=== PATIENT | female | born 1935 | race Caucasian/White ===

== ENCOUNTER 2020-05-25 11:16 | Inpatient (IN) | payer MEDICARE, OTHER, SELFPAY ==
[2020-05-25] VITALS (10 sets, daily range): BP systolic 110–141; BP diastolic 80–95; PULSE 64–94; RESP 16–18; TEMP 36.6; O2SAT 98–100; BMI 18.6
--- NOTE | 2020-05-25 11:38 | W.ED.GENADLT ---
Documented by User: YVONNE Bar 05/26/20 07:28 HPI - General Adult General: Chief complaint: General Medical Stated complaint: R HIP PAIN Time Seen by Provider: 05/25/20 11:17 History of Present Illness: HPI narrative: Patient is an 84-year-old female who comes to the ED after having a fall. Patient was brought in by EMS from [facility]. Patient has dementia. EMS was told by staff that patient had a fall on 17 May and has some hip pain. Staff did not specify if she was complaining of right or left hip pain. EMS palpated hips and patient had no pain and patient was unsure why she was coming here to the ED. Patient says she has no hip pain currently. Patient is a poor historian due to underlying dementia. Associated symptoms: Deny chest pain, dyspnea, headache(s), nausea, rash, palpitations or vomiting Review of Systems Narrative: [facility] at jail. Const: Denies: fever(s), chills or fatigue Eyes: Denies: change in vision or eye discomfort ENMT: Denies: throat pain, odynophagia, nasal discharge or nasal congestion Card: Denies: chest pain, palpitations, edema, swelling of feet/ankles, dyspnea on exertion or orthopnea Resp: Denies: dyspnea, productive cough or non-productive cough GI: Denies: abdominal pain, nausea, vomiting, diarrhea, constipation or hematochezia : Denies: flank pain, dysuria or hematuria Musc: Reports: joint pain (Staff at jail said patient was complaining of hip pain after fall.); Denies: neck pain, back pain or extremity swelling Skin/Breast: Denies: rash or new lesions Neuro: Denies: headache(s), numbness in extremities or weakness in extremities PFS ED PFSH: Medical History Constipation Dementia Fracture of femoral neck, right Malnourished UTI (urinary tract infection) Enterococcus faecalis Surgical History H/O inguinal hernia repair Tubal ligation status Family History Other Family history non-contributory Social History Smoking and tobacco status: never smoked Alcohol intake: never Housing: Long-Term Physical Exam Const: COMMON NORMALS: no acute distress and alert EXAM LIMITATIONS: altered mental status (Pt has Dementia, so baseline mental status is unknown.) GENERAL APPEARANCE: cooperative and comfortable HENMT: COMMON NORMALS: normocephalic HEAD & SCALP: normocephalic MOUTH: Normal oral and palatal mucosa present THROAT: posterior oropharynx normal and uvula midline Neck/C-Spine: COMMON NORMALS: supple GENERAL: Yes normal visual inspection Resp: COMMON NORMALS: normal respiratory effort, No retractions, No use of accessory muscles and clear to auscultation bilaterally AUSCULTATION: clear to auscultation bilaterally Cardio: COMMON NORMALS: regular rate, regular rhythm, S1 normal heart sound present, S2 normal heart sound present, No gallops present (Cardio), No clicks present (Cardio), No murmurs present (Cardio) and Peripheral pulses 2+ throughout RATE: regular rate RHYTHM: regular rhythm HEART SOUNDS: S1 normal heart sound present and S2 normal heart sound present PERIPHERAL PULSES: Peripheral pulses 2+ throughout GI: COMMON NORMALS: Normal to inspection, nondistended, normoactive bowel sounds present, Soft to palpation, non-tender and no masses PALPATION: Yes Soft to palpation : COMMON NORMALS: Yes no CVA tenderness BLADDER/KIDNEY EXAM: Yes no CVA tenderness Back/Pelvis: COMMON NORMALS: no CVA tenderness Extremity: COMMON NORMALS: normal to inspection Neuro: COMMON NORMALS: moves all extremities SENSORIUM/ORIENTATION: Yes alert Skin: GENERAL SKIN EXAM: dry skin Course ED course: While patient was waiting for transport we received a call from patient's doctor about some abnormal labs. Said that some labs were performed couple days ago the results just came back. Patient has a potassium of 2.5. We then ordered a bunch of labs and other tests on patient to further evaluate. Vital Signs: Vital signs: Vital Signs Temperature 98.3 F 05/27/20 00:00 Pulse Rate 73 05/27/20 00:00 Respiratory Rate 18 05/27/20 00:00 Blood Pressure 100/54 05/27/20 00:00 Pulse Oximetry 97 05/27/20 00:00 MDM - General Adult MDM Narrative: Medical decision making narrative: Patient is an 84-year-old female comes to the ED after having a fall at jail. PMH of dementia. Patient is a poor historian due to underlying dementia fall occurred approximately 8 days ago. Staff told EMS that patient was complaining of hip pain. Exam showed no significant findings. X-ray of the right and left hip showed no acute fractures or findings. CT of head was performed, since patient had a fall and no other details were provided by nursing staff. CT of head showed no acute findings. Patient was set up to be discharged back to jail. While patient was waiting for transport the ED received a call from patient's doctor. The doctor had some lab results back from testing that was done a couple days ago and the potassium level was 2.5. After calling from [facility] we then kept patient here and ordered a full set of labs, EKG and some imaging. Patient had a potassium of 2.3, D-dimer of 2.95, white blood cell count 26.8 BNP of 3140 and a lipase of 400. CT of abdomen was performed and patient had acute pancreatitis. Patient was admitted to hospital for further evaluation. Lab Data: Labs: Lab Results 05/25/20 05/25/20 05/25/20 Range/Units 17:24 17:24 17:24 WBC 27.9 H (4.0-10.0) 10^3/ uL RBC 5.63 H (4.1-5.3) 10^6/u L Hgb 16.2 H (11.5-15.3) g/dL Hct 49.3 H (37.0-47.0) % MCV 87.6 (81-99) fL MCH 28.8 (28.0-34.0) pg MCHC 32.9 (30.0-36.0) g/dL RDW 13.6 (12.1-15.1) % Plt Count 344 (130-400) 10^3/c mm MPV 11.1 H (7.4-10.4) fL Neut % (Auto) 84.3 % Lymph % (Auto) 5.7 % [place] % (Auto) 7.4 % Eos % (Auto) 0.3 % Baso % (Auto) 0.4 % Neut # (Auto) 23.50 H (1.8-7.7) 10^3/u L Lymph # (Auto) 1.6 (0.8-4.8) 10^3/u L [place] # (Auto) 2.1 H (0.2-0.9) 10^3/u L Eos # (Auto) 0.1 (0.0-0.8) 10^3/u L Baso # (Auto) 0.1 (0.0-0.1) 10^3/u L Nucleated RBC % (a uto) 0 % Nucleated RBCs # 0.0 /100WBC D-Dimer (0-0.59) ug/mIFE U Sodium 147 H (136-145) mmol/L Potassium 2.3 L* (3.5-5.1) mmol/L Chloride 100 (98-107) mmol/L Carbon Dioxide 37 H (22-29) mmol/L Anion Gap 12.3 (5-19) BUN 26 H (8-23) mg/dL Creatinine 0.8 (0.5-0.9) mg/dL GFR Calculation Not Reportable Glucose 141 H (65-115) mg/dL Calculated Osmolal ity 311 H (285-295) mOsm/k g Lactic Acid 2.0 (0.5-2.2) mmol/L Calcium 10.8 H (8.5-10.5) mg/dL Total Bilirubin 1.2 (0.15-1.2) mg/dL AST 35 H (0-32) U/L ALT 33 (0-33) U/L Alkaline Phosphata se 110 H (35-105) IU/L Troponin T Baselin e (0-10) ng/L Troponin T 120 Min [place] (0-10) ng/L Delta Troponin T (0-10) ABS# NT-Pro-B Natriuret Pep 3140 H (0-450) pg/mL Total Protein 5.5 L (6.6-8.7) g/dL Albumin 2.8 L (3.5-5.2) g/dL Globulin 2.7 (1.3-4.6) g/dL Lipase (13-60) U/L Urine Color (Yellow) Urine Appearance (CLEAR) Urine pH (5-7) Ur Specific Gravit y (1.005-1.030) Urine Protein (Negative) Urine Glucose (UA) (Normal) Urine Ketones (Negative) Urine Blood (Negative) Urine Nitrate (Negative) Urine Bilirubin (Negative) Urine Urobilinogen (Negative) mg/dL Ur Leukocyte Rica ase (Negative) Urine RBC (0-2) /hpf Urine WBC (0-5) /hpf Ur Squamous Epith Cells (0-5) /hpf Amorphous Sediment Urine Bacteria (NONE) /hpf 05/25/20 05/25/20 05/25/20 Range/Units 17:24 17:24 17:24 WBC (4.0-10.0) 10^3/ uL RBC (4.1-5.3) 10^6/u L Hgb (11.5-15.3) g/dL Hct (37.0-47.0) % MCV (81-99) fL MCH (28.0-34.0) pg MCHC (30.0-36.0) g/dL RDW (12.1-15.1) % Plt Count (130-400) 10^3/c mm MPV (7.4-10.4) fL Neut % (Auto) % Lymph % (Auto) % [place] % (Auto) % Eos % (Auto) % Baso % (Auto) % Neut # (Auto) (1.8-7.7) 10^3/u L Lymph # (Auto) (0.8-4.8) 10^3/u L [place] # (Auto) (0.2-0.9) 10^3/u L Eos # (Auto) (0.0-0.8) 10^3/u L Baso # (Auto) (0.0-0.1) 10^3/u L Nucleated RBC % (a uto) % Nucleated RBCs # /100WBC D-Dimer 2.95 H (0-0.59) ug/mIFE U Sodium (136-145) mmol/L Potassium (3.5-5.1) mmol/L Chloride (98-107) mmol/L Carbon Dioxide (22-29) mmol/L Anion Gap (5-19) BUN (8-23) mg/dL Creatinine (0.5-0.9) mg/dL GFR Calculation Glucose (65-115) mg/dL Calculated Osmolal ity (285-295) mOsm/k g Lactic Acid (0.5-2.2) mmol/L Calcium (8.5-10.5) mg/dL Total Bilirubin (0.15-1.2) mg/dL AST (0-32) U/L ALT (0-33) U/L Alkaline Phosphata se (35-105) IU/L Troponin T Baselin e 70 H (0-10) ng/L Troponin T 120 Min [place] (0-10) ng/L Delta Troponin T (0-10) ABS# NT-Pro-B Natriuret Pep (0-450) pg/mL Total Protein (6.6-8.7) g/dL Albumin (3.5-5.2) g/dL Globulin (1.3-4.6) g/dL Lipase 400 H (13-60) U/L Urine Color (Yellow) Urine Appearance (CLEAR) Urine pH (5-7) Ur Specific Gravit y (1.005-1.030) Urine Protein (Negative) Urine Glucose (UA) (Normal) Urine Ketones (Negative) Urine Blood (Negative) Urine Nitrate (Negative) Urine Bilirubin (Negative) Urine Urobilinogen (Negative) mg/dL Ur Leukocyte Rica ase (Negative) Urine RBC (0-2) /hpf Urine WBC (0-5) /hpf Ur Squamous Epith Cells (0-5) /hpf Amorphous Sediment Urine Bacteria (NONE) /hpf 05/25/20 05/25/20 Range/Units 19:16 19:25 WBC (4.0-10.0) 10^3/ uL RBC (4.1-5.3) 10^6/u L Hgb (11.5-15.3) g/dL Hct (37.0-47.0) % MCV (81-99) fL MCH (28.0-34.0) pg MCHC (30.0-36.0) g/dL RDW (12.1-15.1) % Plt Count (130-400) 10^3/c mm MPV (7.4-10.4) fL Neut % (Auto) % Lymph % (Auto) % [place] % (Auto) % Eos % (Auto) % Baso % (Auto) % Neut # (Auto) (1.8-7.7) 10^3/u L Lymph # (Auto) (0.8-4.8) 10^3/u L [place] # (Auto) (0.2-0.9) 10^3/u L Eos # (Auto) (0.0-0.8) 10^3/u L Baso # (Auto) (0.0-0.1) 10^3/u L Nucleated RBC % (a uto) % Nucleated RBCs # /100WBC D-Dimer (0-0.59) ug/mIFE U Sodium (136-145) mmol/L Potassium (3.5-5.1) mmol/L Chloride (98-107) mmol/L Carbon Dioxide (22-29) mmol/L Anion Gap (5-19) BUN (8-23) mg/dL Creatinine (0.5-0.9) mg/dL GFR Calculation Glucose (65-115) mg/dL Calculated Osmolal ity (285-295) mOsm/k g Lactic Acid (0.5-2.2) mmol/L Calcium (8.5-10.5) mg/dL Total Bilirubin (0.15-1.2) mg/dL AST (0-32) U/L ALT (0-33) U/L Alkaline Phosphata se (35-105) IU/L Troponin T Baselin e (0-10) ng/L Troponin T 120 Min [place] 61.01 H (0-10) ng/L Delta Troponin T -8.99 L (0-10) ABS# NT-Pro-B Natriuret Pep (0-450) pg/mL Total Protein (6.6-8.7) g/dL Albumin (3.5-5.2) g/dL Globulin (1.3-4.6) g/dL Lipase (13-60) U/L Urine Color Yellow (Yellow) Urine Appearance Hazy A (CLEAR) Urine pH 5 (5-7) Ur Specific Gravit y 1.015 (1.005-1.030) Urine Protein Trace (Negative) Urine Glucose (UA) Norm (Normal) Urine Ketones 1+ H (Negative) Urine Blood 3+ H (Negative) Urine Nitrate Negative (Negative) Urine Bilirubin Neg (Negative) Urine Urobilinogen Norm (Negative) mg/dL Ur Leukocyte Rica ase 2+ H (Negative) Urine RBC 80-100 H (0-2) /hpf Urine WBC 55-80 H (0-5) /hpf Ur Squamous Epith Cells 0-4 H (0-5) /hpf Amorphous Sediment Not Reportable Urine Bacteria 2+ H (NONE) /hpf Imaging Data^: Xray Ortho: Attestation: I personally reviewed and interpreted this imaging study as follows: Radiologist's impression: [facility] [address] [place] [address]. [place] [address] XRay Report Signed Patient: Maira Palacio Unit #: [id number] : 1935 Age/Sex: 84 / F ADM Date: 05/25/20 Loc: ER Room/Bed: Attending Dr: Ordering Provider/Ordering MD: Pio Rebolledo Date of Service: 05/25/20 Procedure(s): XR hip BI 2V wo/w pel [id number] Accession Number(s): [id number] Report Number: [id number] WS: [id number] XR hip BI 2V wo/w pel [id number] REASON FOR EXAM: fall FINDINGS: Significant narrowing of the hip joint with marginal osteophytes from femoral head and acetabulum. Femoral head and neck are intact. Greater lesser trochanters are intact. Proximal femur inferior to the trochanters intact. The superior and inferior pubic rami are intact. Incidental note: Probable uterine fibroid. Severe degenerative spondylosis in the lower lumbar spine. XR/XR hip BI 2V wo/w pel [id number] IMPRESSION: Osteoarthropathy. No fracture identified. Dictated By: Moses Villatoro Jr, MD Signed By: Moses Villatoro Jr, MD Signed Date/Time: 05/25/20 1218 DD/ 1214 CT Head: Attestation: I personally reviewed and interpreted this imaging study as follows: Radiologist's impression: [facility] [address] [place] [address]. [place] [address] CT Scan Report Signed Patient: Maira Palacio Unit #: [id number] : 1935 Age/Sex: 84 / F ADM Date: 05/25/20 Loc: ER Room/Bed: Attending Dr: Ordering Provider/Ordering MD: Pio Rebolledo Date of Service: 05/25/20 Procedure(s): CT head wo con* [id number] Accession Number(s): [id number] Report Number: [id number] WS: [id number] CT HEAD NONCONTRAST HISTORY: fall TECHNIQUE: Contiguous axial imaging performed through the brain in 2.5 mm imaging. Bone and soft tissue windows. Sagittal and coronal reformats reviewed. All CT scans at [facility] use at least one of these dose optimization techniques: automated exposure control; mA and/or kV adjustment per patient size (includes targeted exams where dose is matched to clinical indication); or iterative reconstruction. DLP: 659.85 mGy.cm COMPARISON: 07/23/2017 No acute intracranial hemorrhage, midline shift or mass effect. Moderate atrophy and mild chronic microvascular ischemic disease. Bilateral lacunar infarcts versus perivascular spaces along the inferior basal ganglia. No large territory infarct. Ventricles: Normal size with no hydrocephalus. Paranasal sinuses: Mucoperiosteal thickening in the sphenoid sinuses in the posterior RIGHT ethmoid air cells. Mastoid air cells: Well pneumatized. Calvarium and scalp: Skull is intact with no soft tissue edema or swelling. Extensive atherosclerotic plaque within the intracranial carotid arteries. CT/CT head wo con* [id number] IMPRESSION: 1. No acute intracranial hemorrhage or edema. 2. Moderate atrophy and chronic ischemic disease. Dictated By: Pat Matamoros DO Signed By: Pat Matamoros DO Signed Date/Time: 05/25/20 1239 DD/ 1237 Discharge Plan Discharge Admit Provider: Socorro Bo Clinical Impression: Fall Qualifiers: Encounter type: initial encounter Qualified Code(s): W19.XXXA - Unspecified fall, initial encounter Condition: Stable Discharge Diet: Regular Discharge Activity: Increase activity as tolerated Coding Level of Care Code ED Scholarship Counselor for Chg Fwd Exam Comprehensive Documented by User: SUE Duran 05/26/20 02:26 HPI - General Adult General: Chief complaint: General Medical Stated complaint: R HIP PAIN Time Seen by Provider: 05/25/20 11:17 [facility] ED PFSH: Medical History Constipation Dementia Fracture of femoral neck, right Malnourished UTI (urinary tract infection) Enterococcus faecalis Surgical History H/O inguinal hernia repair Tubal ligation status Family History Other Family history non-contributory Social History Smoking and tobacco status: never smoked Alcohol intake: never Housing: Long-Term Course Vital Signs: Vital signs: Vital Signs Temperature 98.3 F 05/27/20 00:00 Pulse Rate 73 05/27/20 00:00 Respiratory Rate 18 05/27/20 00:00 Blood Pressure 100/54 05/27/20 00:00 Pulse Oximetry 97 05/27/20 00:00 [facility] - General Adult Lab Data: Labs: Lab Results 05/25/20 05/25/20 05/25/20 Range/Units 17:24 17:24 17:24 WBC 27.9 H (4.0-10.0) 10^3/ uL RBC 5.63 H (4.1-5.3) 10^6/u L Hgb 16.2 H (11.5-15.3) g/dL Hct 49.3 H (37.0-47.0) % MCV 87.6 (81-99) fL MCH 28.8 (28.0-34.0) pg MCHC 32.9 (30.0-36.0) g/dL RDW 13.6 (12.1-15.1) % Plt Count 344 (130-400) 10^3/c mm MPV 11.1 H (7.4-10.4) fL Neut % (Auto) 84.3 % Lymph % (Auto) 5.7 % [place] % (Auto) 7.4 % Eos % (Auto) 0.3 % Baso % (Auto) 0.4 % Neut # (Auto) 23.50 H (1.8-7.7) 10^3/u L Lymph # (Auto) 1.6 (0.8-4.8) 10^3/u L [place] # (Auto) 2.1 H (0.2-0.9) 10^3/u L Eos # (Auto) 0.1 (0.0-0.8) 10^3/u L Baso # (Auto) 0.1 (0.0-0.1) 10^3/u L Nucleated RBC % (a uto) 0 % Nucleated RBCs # 0.0 /100WBC D-Dimer (0-0.59) ug/mIFE U Sodium 147 H (136-145) mmol/L Potassium 2.3 L* (3.5-5.1) mmol/L Chloride 100 (98-107) mmol/L Carbon Dioxide 37 H (22-29) mmol/L Anion Gap 12.3 (5-19) BUN 26 H (8-23) mg/dL Creatinine 0.8 (0.5-0.9) mg/dL GFR Calculation Not Reportable Glucose 141 H (65-115) mg/dL Calculated Osmolal ity 311 H (285-295) mOsm/k g Lactic Acid 2.0 (0.5-2.2) mmol/L Calcium 10.8 H (8.5-10.5) mg/dL Total Bilirubin 1.2 (0.15-1.2) mg/dL AST 35 H (0-32) U/L ALT 33 (0-33) U/L Alkaline Phosphata se 110 H (35-105) IU/L Troponin T Baselin e (0-10) ng/L Troponin T 120 Min [place] (0-10) ng/L Delta Troponin T (0-10) ABS# NT-Pro-B Natriuret Pep 3140 H (0-450) pg/mL Total Protein 5.5 L (6.6-8.7) g/dL Albumin 2.8 L (3.5-5.2) g/dL Globulin 2.7 (1.3-4.6) g/dL Lipase (13-60) U/L Urine Color (Yellow) Urine Appearance (CLEAR) Urine pH (5-7) Ur Specific Gravit y (1.005-1.030) Urine Protein (Negative) Urine Glucose (UA) (Normal) Urine Ketones (Negative) Urine Blood (Negative) Urine Nitrate (Negative) Urine Bilirubin (Negative) Urine Urobilinogen (Negative) mg/dL Ur Leukocyte Rica ase (Negative) Urine RBC (0-2) /hpf Urine WBC (0-5) /hpf Ur Squamous Epith Cells (0-5) /hpf Amorphous Sediment Urine Bacteria (NONE) /hpf 05/25/20 05/25/20 05/25/20 Range/Units 17:24 17:24 17:24 WBC (4.0-10.0) 10^3/ uL RBC (4.1-5.3) 10^6/u L Hgb (11.5-15.3) g/dL Hct (37.0-47.0) % MCV (81-99) fL MCH (28.0-34.0) pg MCHC (30.0-36.0) g/dL RDW (12.1-15.1) % Plt Count (130-400) 10^3/c mm MPV (7.4-10.4) fL Neut % (Auto) % Lymph % (Auto) % [place] % (Auto) % Eos % (Auto) % Baso % (Auto) % Neut # (Auto) (1.8-7.7) 10^3/u L Lymph # (Auto) (0.8-4.8) 10^3/u L [place] # (Auto) (0.2-0.9) 10^3/u L Eos # (Auto) (0.0-0.8) 10^3/u L Baso # (Auto) (0.0-0.1) 10^3/u L Nucleated RBC % (a uto) % Nucleated RBCs # /100WBC D-Dimer 2.95 H (0-0.59) ug/mIFE U Sodium (136-145) mmol/L Potassium (3.5-5.1) mmol/L Chloride (98-107) mmol/L Carbon Dioxide (22-29) mmol/L Anion Gap (5-19) BUN (8-23) mg/dL Creatinine (0.5-0.9) mg/dL GFR Calculation Glucose (65-115) mg/dL Calculated Osmolal ity (285-295) mOsm/k g Lactic Acid (0.5-2.2) mmol/L Calcium (8.5-10.5) mg/dL Total Bilirubin (0.15-1.2) mg/dL AST (0-32) U/L ALT (0-33) U/L Alkaline Phosphata se (35-105) IU/L Troponin T Baselin e 70 H (0-10) ng/L Troponin T 120 Min [place] (0-10) ng/L Delta Troponin T (0-10) ABS# NT-Pro-B Natriuret Pep (0-450) pg/mL Total Protein (6.6-8.7) g/dL Albumin (3.5-5.2) g/dL Globulin (1.3-4.6) g/dL Lipase 400 H (13-60) U/L Urine Color (Yellow) Urine Appearance (CLEAR) Urine pH (5-7) Ur Specific Gravit y (1.005-1.030) Urine Protein (Negative) Urine Glucose (UA) (Normal) Urine Ketones (Negative) Urine Blood (Negative) Urine Nitrate (Negative) Urine Bilirubin (Negative) Urine Urobilinogen (Negative) mg/dL Ur Leukocyte Rica ase (Negative) Urine RBC (0-2) /hpf Urine WBC (0-5) /hpf Ur Squamous Epith Cells (0-5) /hpf Amorphous Sediment Urine Bacteria (NONE) /hpf 05/25/20 05/25/20 Range/Units 19:16 19:25 WBC (4.0-10.0) 10^3/ uL RBC (4.1-5.3) 10^6/u L Hgb (11.5-15.3) g/dL Hct (37.0-47.0) % MCV (81-99) fL MCH (28.0-34.0) pg MCHC (30.0-36.0) g/dL RDW (12.1-15.1) % Plt Count (130-400) 10^3/c mm MPV (7.4-10.4) fL Neut % (Auto) % Lymph % (Auto) % [place] % (Auto) % Eos % (Auto) % Baso % (Auto) % Neut # (Auto) (1.8-7.7) 10^3/u L Lymph # (Auto) (0.8-4.8) 10^3/u L [place] # (Auto) (0.2-0.9) 10^3/u L Eos # (Auto) (0.0-0.8) 10^3/u L Baso # (Auto) (0.0-0.1) 10^3/u L Nucleated RBC % (a uto) % Nucleated RBCs # /100WBC D-Dimer (0-0.59) ug/mIFE U Sodium (136-145) mmol/L Potassium (3.5-5.1) mmol/L Chloride (98-107) mmol/L Carbon Dioxide (22-29) mmol/L Anion Gap (5-19) BUN (8-23) mg/dL Creatinine (0.5-0.9) mg/dL GFR Calculation Glucose (65-115) mg/dL Calculated Osmolal ity (285-295) mOsm/k g Lactic Acid (0.5-2.2) mmol/L Calcium (8.5-10.5) mg/dL Total Bilirubin (0.15-1.2) mg/dL AST (0-32) U/L ALT (0-33) U/L Alkaline Phosphata se (35-105) IU/L Troponin T Baselin e (0-10) ng/L Troponin T 120 Min [place] 61.01 H (0-10) ng/L Delta Troponin T -8.99 L (0-10) ABS# NT-Pro-B Natriuret Pep (0-450) pg/mL Total Protein (6.6-8.7) g/dL Albumin (3.5-5.2) g/dL Globulin (1.3-4.6) g/dL Lipase (13-60) U/L Urine Color Yellow (Yellow) Urine Appearance Hazy A (CLEAR) Urine pH 5 (5-7) Ur Specific Gravit y 1.015 (1.005-1.030) Urine Protein Trace (Negative) Urine Glucose (UA) Norm (Normal) Urine Ketones 1+ H (Negative) Urine Blood 3+ H (Negative) Urine Nitrate Negative (Negative) Urine Bilirubin Neg (Negative) Urine Urobilinogen Norm (Negative) mg/dL Ur Leukocyte Rica ase 2+ H (Negative) Urine RBC 80-100 H (0-2) /hpf Urine WBC 55-80 H (0-5) /hpf Ur Squamous Epith Cells 0-4 H (0-5) /hpf Amorphous Sediment Not Reportable Urine Bacteria 2+ H (NONE) /hpf Discharge Plan Discharge Admit Provider: Socorro Bo Clinical Impression: Fall Qualifiers: Encounter type: initial encounter Qualified Code(s): W19.XXXA - Unspecified fall, initial encounter Condition: Stable Discharge Diet: Regular Discharge Activity: Increase activity as tolerated Coding Level of Care Code ED Scholarship Counselor for Chg Fwd Exam Comprehensive Documented by User: Luke Trivedi MD, [facility] 05/27/20 00:55 HPI - General Adult General: Chief complaint: General Medical Stated complaint: R HIP PAIN Time Seen by Provider: 05/25/20 11:17 PFSH ED PFSH: Medical History Constipation Dementia Fracture of femoral neck, right Malnourished UTI (urinary tract infection) Enterococcus faecalis Surgical History H/O inguinal hernia repair Tubal ligation status Family History Other Family history non-contributory Social History Smoking and tobacco status: never smoked Alcohol intake: never Housing: Long-Term Course Vital Signs: Vital signs: Vital Signs Temperature 98.3 F 05/27/20 00:00 Pulse Rate 73 05/27/20 00:00 Respiratory Rate 18 05/27/20 00:00 Blood Pressure 100/54 05/27/20 00:00 Pulse Oximetry 97 05/27/20 00:00 MDM - General Adult MDM Narrative: Medical decision making narrative: 84-year-old female patient who is a jail resident and was sent here following a fall. See the midlevel providers note for full history and physical examination. There was apparently some miscommunication and initially we will go report that she fell and complained of hip pain. However after being discharged were informed that she had had abnormal labs with hypokalemia. On lab testing here she was hypokalemic and potassium was replaced intravenously. Further evaluation also shows that she has acute pancreatitis. She is admitted to the hospital for further evaluation and management. Potassium was replaced in the emergency department Lab Data: Labs: Lab Results 05/25/20 05/25/20 05/25/20 Range/Units 17:24 17:24 17:24 WBC 27.9 H (4.0-10.0) 10^3/ uL RBC 5.63 H (4.1-5.3) 10^6/u L Hgb 16.2 H (11.5-15.3) g/dL Hct 49.3 H (37.0-47.0) % MCV 87.6 (81-99) fL MCH 28.8 (28.0-34.0) pg MCHC 32.9 (30.0-36.0) g/dL RDW 13.6 (12.1-15.1) % Plt Count 344 (130-400) 10^3/c mm MPV 11.1 H (7.4-10.4) fL Neut % (Auto) 84.3 % Lymph % (Auto) 5.7 % [place] % (Auto) 7.4 % Eos % (Auto) 0.3 % Baso % (Auto) 0.4 % Neut # (Auto) 23.50 H (1.8-7.7) 10^3/u L Lymph # (Auto) 1.6 (0.8-4.8) 10^3/u L [place] # (Auto) 2.1 H (0.2-0.9) 10^3/u L Eos # (Auto) 0.1 (0.0-0.8) 10^3/u L Baso # (Auto) 0.1 (0.0-0.1) 10^3/u L Nucleated RBC % (a uto) 0 % Nucleated RBCs # 0.0 /100WBC D-Dimer (0-0.59) ug/mIFE U Sodium 147 H (136-145) mmol/L Potassium 2.3 L* (3.5-5.1) mmol/L Chloride 100 (98-107) mmol/L Carbon Dioxide 37 H (22-29) mmol/L Anion Gap 12.3 (5-19) BUN 26 H (8-23) mg/dL Creatinine 0.8 (0.5-0.9) mg/dL GFR Calculation Not Reportable Glucose 141 H (65-115) mg/dL Calculated Osmolal ity 311 H (285-295) mOsm/k g Lactic Acid 2.0 (0.5-2.2) mmol/L Calcium 10.8 H (8.5-10.5) mg/dL Total Bilirubin 1.2 (0.15-1.2) mg/dL AST 35 H (0-32) U/L ALT 33 (0-33) U/L Alkaline Phosphata se 110 H (35-105) IU/L Troponin T Baselin e (0-10) ng/L Troponin T 120 Min [place] (0-10) ng/L Delta Troponin T (0-10) ABS# NT-Pro-B Natriuret Pep 3140 H (0-450) pg/mL Total Protein 5.5 L (6.6-8.7) g/dL Albumin 2.8 L (3.5-5.2) g/dL Globulin 2.7 (1.3-4.6) g/dL Lipase (13-60) U/L Urine Color (Yellow) Urine Appearance (CLEAR) Urine pH (5-7) Ur Specific Gravit y (1.005-1.030) Urine Protein (Negative) Urine Glucose (UA) (Normal) Urine Ketones (Negative) Urine Blood (Negative) Urine Nitrate (Negative) Urine Bilirubin (Negative) Urine Urobilinogen (Negative) mg/dL Ur Leukocyte [place] (Negative) Urine RBC (0-2) /hpf Urine WBC (0-5) /hpf Ur Squamous Epith Cells (0-5) /hpf Amorphous Sediment Urine Bacteria (NONE) /hpf 05/25/20 05/25/20 05/25/20 Range/Units 17:24 17:24 17:24 WBC (4.0-10.0) 10^3/ uL RBC (4.1-5.3) 10^6/u L Hgb (11.5-15.3) g/dL Hct (37.0-47.0) % MCV (81-99) fL MCH (28.0-34.0) pg MCHC (30.0-36.0) g/dL RDW (12.1-15.1) % Plt Count (130-400) 10^3/c mm MPV (7.4-10.4) fL Neut % (Auto) % Lymph % (Auto) % [place] % (Auto) % Eos % (Auto) % Baso % (Auto) % Neut # (Auto) (1.8-7.7) 10^3/u L Lymph # (Auto) (0.8-4.8) 10^3/u L [place] # (Auto) (0.2-0.9) 10^3/u L Eos # (Auto) (0.0-0.8) 10^3/u L Baso # (Auto) (0.0-0.1) 10^3/u L Nucleated RBC % (a uto) % Nucleated RBCs # /100WBC D-Dimer 2.95 H (0-0.59) ug/mIFE U Sodium (136-145) mmol/L Potassium (3.5-5.1) mmol/L Chloride (98-107) mmol/L Carbon Dioxide (22-29) mmol/L Anion Gap (5-19) BUN (8-23) mg/dL Creatinine (0.5-0.9) mg/dL GFR Calculation Glucose (65-115) mg/dL Calculated Osmolal ity (285-295) mOsm/k g Lactic Acid (0.5-2.2) mmol/L Calcium (8.5-10.5) mg/dL Total Bilirubin (0.15-1.2) mg/dL AST (0-32) U/L ALT (0-33) U/L Alkaline Phosphata se (35-105) IU/L Troponin T Baselin e 70 H (0-10) ng/L Troponin T 120 Min [place] (0-10) ng/L Delta Troponin T (0-10) ABS# NT-Pro-B Natriuret Pep (0-450) pg/mL Total Protein (6.6-8.7) g/dL Albumin (3.5-5.2) g/dL Globulin (1.3-4.6) g/dL Lipase 400 H (13-60) U/L Urine Color (Yellow) Urine Appearance (CLEAR) Urine pH (5-7) Ur Specific Gravit y (1.005-1.030) Urine Protein (Negative) Urine Glucose (UA) (Normal) Urine Ketones (Negative) Urine Blood (Negative) Urine Nitrate (Negative) Urine Bilirubin (Negative) Urine Urobilinogen (Negative) mg/dL Ur Leukocyte Rica ase (Negative) Urine RBC (0-2) /hpf Urine WBC (0-5) /hpf Ur Squamous Epith Cells (0-5) /hpf Amorphous Sediment Urine Bacteria (NONE) /hpf 05/25/20 05/25/20 Range/Units 19:16 19:25 WBC (4.0-10.0) 10^3/ uL RBC (4.1-5.3) 10^6/u L Hgb (11.5-15.3) g/dL Hct (37.0-47.0) % MCV (81-99) fL MCH (28.0-34.0) pg MCHC (30.0-36.0) g/dL RDW (12.1-15.1) % Plt Count (130-400) 10^3/c mm MPV (7.4-10.4) fL Neut % (Auto) % Lymph % (Auto) % [place] % (Auto) % Eos % (Auto) % Baso % (Auto) % Neut # (Auto) (1.8-7.7) 10^3/u L Lymph # (Auto) (0.8-4.8) 10^3/u L [place] # (Auto) (0.2-0.9) 10^3/u L Eos # (Auto) (0.0-0.8) 10^3/u L Baso # (Auto) (0.0-0.1) 10^3/u L Nucleated RBC % (a uto) % Nucleated RBCs # /100WBC D-Dimer (0-0.59) ug/mIFE U Sodium (136-145) mmol/L Potassium (3.5-5.1) mmol/L Chloride (98-107) mmol/L Carbon Dioxide (22-29) mmol/L Anion Gap (5-19) BUN (8-23) mg/dL Creatinine (0.5-0.9) mg/dL GFR Calculation Glucose (65-115) mg/dL Calculated Osmolal ity (285-295) mOsm/k g Lactic Acid (0.5-2.2) mmol/L Calcium (8.5-10.5) mg/dL Total Bilirubin (0.15-1.2) mg/dL AST (0-32) U/L ALT (0-33) U/L Alkaline Phosphata se (35-105) IU/L Troponin T Baselin e (0-10) ng/L Troponin T 120 Min [place] 61.01 H (0-10) ng/L Delta Troponin T -8.99 L (0-10) ABS# NT-Pro-B Natriuret Pep (0-450) pg/mL Total Protein (6.6-8.7) g/dL Albumin (3.5-5.2) g/dL Globulin (1.3-4.6) g/dL Lipase (13-60) U/L Urine Color Yellow (Yellow) Urine Appearance Hazy A (CLEAR) Urine pH 5 (5-7) Ur Specific Gravit y 1.015 (1.005-1.030) Urine Protein Trace (Negative) Urine Glucose (UA) Norm (Normal) Urine Ketones 1+ H (Negative) Urine Blood 3+ H (Negative) Urine Nitrate Negative (Negative) Urine Bilirubin Neg (Negative) Urine Urobilinogen Norm (Negative) mg/dL Ur Leukocyte Rica ase 2+ H (Negative) Urine RBC 80-100 H (0-2) /hpf Urine WBC 55-80 H (0-5) /hpf Ur Squamous Epith Cells 0-4 H (0-5) /hpf Amorphous Sediment Not Reportable Urine Bacteria 2+ H (NONE) /hpf Discharge Plan Discharge Admit Provider: Socorro Bo Clinical Impression: Fall Qualifiers: Encounter type: initial encounter Qualified Code(s): W19.XXXA - Unspecified fall, initial encounter Condition: Stable Discharge Diet: Regular Discharge Activity: Increase activity as tolerated Coding Level of Care Code ED Scholarship Counselor for Clark Fwd Exam Comprehensive
--- NOTE | 2020-05-25 11:44 | CT_ITS ---
WS: [id number] CT HEAD NONCONTRAST HISTORY: fall TECHNIQUE: Contiguous axial imaging performed through the brain in 2.5 mm imaging. Bone and soft tiss ue windows. Sagittal and coronal reformats reviewed. All CT scans at [facility] use at ast one of these dose optimization techniques: automated exposure control; mA and/or kV adjustment pe r patient size (includes targeted exams where dose is matched to clinical indication); or iterative r econstruction. DLP: 659.85 mGy.cm COMPARISON: 07/23/2017 No acute intracranial hemorrhage, midline shift or mass effect. Moderate atrophy and mild chronic microvascular ischemic disease. Bilateral lacunar infarcts versus p erivascular spaces along the inferior basal ganglia. No large territory infarct. Ventricles: Normal size with no hydrocephalus. Paranasal sinuses: Mucoperiosteal thickening in the sphenoid sinuses in the posterior RIGHT ethmoid a ir cells. Mastoid air cells: Well pneumatized. Calvarium and scalp: Skull is intact with no soft tissue edema or swelling. Extensive atherosclerotic plaque within the intracranial carotid arteries. CT/CT head wo con* [id number] IMPRESSION: 1. No acute intracranial hemorrhage or edema. 2. Moderate atrophy and chronic ischemic disease.
--- NOTE | 2020-05-25 11:44 | XR_ITS ---
WS: [id number] XR hip BI 2V wo/w pel [id number] REASON FOR EXAM: fall FINDINGS: Significant narrowing of the hip joint with marginal osteophytes from femoral head and acetabulum. Femoral head and neck are intact. Greater lesser trochanters are intact. Proximal femur inferior to the trochanters intact. The superior and inferior pubic rami are intact. Incidental note: Probable uterine fibroid. Severe degenerative spondylosis in the lower lumbar spine. XR/XR hip BI 2V wo/w pel [id number] IMPRESSION: Osteoarthropathy. No fracture identified.
--- NOTE | 2020-05-25 16:25 | ECG_ITS ---
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 Measurements Intervals [place] Rate: 90 P: WI: QRS: 267 QRSD: 102 T: 172 QT: 288 QTc: 353 Interpretive Statements ATRIAL FIBRILLATION INCOMPLETE RIGHT BUNDLE BRANCH BLOCK [90+ ms QRS DURATION, TERMINAL R IN V1/V2, 40+ ms S IN I/aVL/V4/V5/V6] LATERAL MYOCARDIAL INFARCTION [40+ ms Q WAVE AND/OR ST/T ABNORMALITY IN I/aVL/V5/V6], OF INDETERMINATE AGE ST DEPRESSION, CONSIDER SUBENDOCARDIAL INJURY [0.1+ mV ST DEPRESSION] No previous ECG available for comparison Electronically Signed On 05-25-2020 22:43:48 MANAGER ICU by Maria C Waldron M.D. [id number] f
--- NOTE | 2020-05-25 16:26 | XRR_ITS ---
PROCEDURE INFORMATION: Exam: XR Chest, 1 View Exam date and time: 05/25/2020 4:56 PM Age: 84 years old Clinical indication: Patient HX: Ams/dementia. HX of fall TECHNIQUE: Imaging protocol: XR of the chest Views: 1 view. COMPARISON: CT chest con [id number] 07/23/2017 2:34 PM FINDINGS: Lungs: The lungs are hyperinflated, consistent with COPD. No consolidative pulmonary infiltrate noted. Pleural space: Minimal right pleural effusion.The aorta is atherosclerotic. No aortic aneurysm. Heart/Mediastinum: No cardiomegaly. Bones/joints: No acute osseous abnormality demonstrated. XR/XR chest 1V portable [id number] IMPRESSION: 1. The lungs are hyperinflated, consistent with COPD. 2. No acute abnormality demonstrated.
[2020-05-25 17:31] LABS: Basophils # 0.1 10^3/uL (0.0-0.1); Basophils % 0.4 %; Eosinophils # 0.1 10^3/uL (0.0-0.8); Eosinophils % 0.3 %; Hematocrit 49.3 % (37.0-47.0); Hemoglobin 16.2 g/dL (11.5-15.3); Lymphocytes # 1.6 10^3/uL (0.8-4.8); Lymphocytes % 5.7 %; Mean Corpuscular HGB Conc 32.9 g/dL (30.0-36.0); Mean Corpuscular Hemoglobin 28.8 pg (28.0-34.0); Mean Corpuscular Volume 87.6 fL (81-99); Mean Platelet Volume 11.1 fL (7.4-10.4); Monocytes # 2.1 10^3/uL (0.2-0.9); Monocytes % 7.4 %; Neutrophils % 84.3 %; Nucleated Red Blood Cells % 0 %; Platelet Count 344 10^3/cmm (130-400); Red Blood Count 5.63 10^6/uL (4.1-5.3); Red Cell Distribution Width 13.6 % (12.1-15.1); White Blood Count 27.9 10^3/uL (4.0-10.0)
--- NOTE | 2020-05-25 17:44 | CTR_ITS ---
PROCEDURE INFORMATION: Exam: CT Abdomen And Pelvis With Contrast Exam date and time: 05/25/2020 7:59 PM Age: 84 years old Clinical indication: Abdominal pain TECHNIQUE: Imaging protocol: Computed tomography of the abdomen and pelvis with intravenous contrast. Radiation optimization: All CT scans at this facility use at least one of these dose optimization techniques: automated exposure control; mA and/or kV adjustment per patient size (includes targeted exams where dose is matched to clinical indication); or iterative reconstruction. Contrast material: OMNI 300; Contrast volume: 95 ml; Contrast route: INTRAVENOUS (IV); COMPARISON: CT abdomen pelvis w con* [id number] 09/10/2014 9:13 PM RADIATION DOSE METRICS: Total DLP (mGy-cm): 268.16 FINDINGS: Lungs: 5 mm calcified granuloma right lung base. Pleural space: Trace right pleural effusion. Heart: Mild cardiomegaly noted. Liver: The liver is unremarkable in appearance. Gallbladder and bile ducts: Gallbladder is distended. No calcified gallstones. Mild mural thickening. No pericholecystic fluid. Pancreas: There is mild edema seen surrounding the pancreas. This is suggestive of acute pancreatitis. Spleen: The spleen is normal in size and appearance. Adrenal glands: The adrenal glands appear within normal limits. Kidneys and ureters: Bilateral nonobstructing renal calculi, measuring up to 10 mm in diameter. Simple appearing right renal cyst measuring 10 mm. The no hydronephrosis. Normal ureters bilaterally. Stomach and bowel: Diverticulosis of the colon; no acute diverticulitis. Large volume of retained stool in the rectum, suggesting constipation versus fecal impaction. Minimal perirectal edema noted. No pneumatosis of the rectum. Appendix: No evidence of appendicitis. Intraperitoneal space: No free air. No significant fluid collection. Vasculature: Atherosclerosis of the aorta. Aorta measures up to 2.2 cm. Lymph nodes: No pathologically enlarged lymph nodes. Urinary bladder: There is a Sexton catheter in the urinary bladder. There is air seen in the urinary bladder lumen secondary to catheterization. Reproductive: 2.5 cm calcified uterine myoma. Bones/joints: Degenerative lumbar spine changes. No acute osseous abnormality. Soft tissues: Unremarkable. CT/CT abdomen pelvis w con* [id number] IMPRESSION: 1. There is mild edema seen surrounding the pancreas. This is suggestive of acute pancreatitis. No evidence of pancreatic hemorrhage or necrosis. Correlation with additional laboratory data is suggested. This is new when compared to 09/10/2014. 2. Gallbladder is distended. No calcified gallstones. Mild mural thickening. No pericholecystic fluid. No biliary dilatation. 3. Diverticulosis of the colon; no acute diverticulitis. 4. Large volume of retained stool in the rectum, suggesting constipation versus fecal impaction. Minimal perirectal edema noted. No pneumatosis of the rectum. COMMENTS: Consistent with the [place] [employer]'s Incidental Findings Committee white paper (J Am Manjeet Radiol 2018): Any incidental renal lesion less than 1 cm or classified as too small to characterize, or any incidental cystic renal lesion characterized as simple-appearing, is likely benign. No follow-up imaging is recommended for these lesions per consensus recommendations based on imaging criteria. Radiation Dose CTDIVOL = (mGy): DLP = 268.16 (mGy-cm)
[2020-05-25 17:56] LABS: Troponin(5th) Baseline 70 ng/L (0-10)
[2020-05-25 18:01] LABS: Alanine Aminotransferase 33 U/L (0-33); Albumin Level 2.8 g/dL (3.5-5.2); Alkaline Phosphatase 110 IU/L (35-105); Anion Gap 12.3 (5-19); Aspartate Amino Transferase 35 U/L (0-32); Blood Urea Nitrogen 26 mg/dL (8-23); Calcium 10.8 mg/dL (8.5-10.5); Carbon Dioxide 37 mmol/L (22-29); Chloride 100 mmol/L (98-107); Globulin 2.7 g/dL (1.3-4.6); Glucose 141 mg/dL (65-115); NT Pro B Type Natriuretic Pept 3140 pg/mL (0-450); Osmolality Calculated 311 mOsm/kg (285-295); Sodium 147 mmol/L (136-145); Total Bilirubin 1.2 mg/dL (0.15-1.2); Total Protein 5.5 g/dL (6.6-8.7)
[2020-05-25 18:04] LABS: Potassium 2.3 mmol/L (3.5-5.1)
--- NOTE | 2020-05-25 18:25 | ECG_ITS ---
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 Measurements Intervals [place] Rate: 72 P: 96 HI: 143 QRS: 269 QRSD: 88 T: 149 QT: 405 QTc: 445 Interpretive Statements SINUS RHYTHM WITH OCCASIONAL SUPRAVENTRICULAR PREMATURE COMPLEXES MARKED RIGHT AXIS DEVIATION [QRS AXIS > 100] POSSIBLE RIGHT VENTRICULAR CONDUCTION DELAY [RSR (QR) IN V1/V2] SEPTAL MYOCARDIAL INFARCTION [40+ ms Q WAVE IN V1/V2], PROBABLY OLD MODERATE T-WAVE ABNORMALITY, CONSIDER LATERAL ISCHEMIA [-0.1+ mV T WAVE IN I/aVL/V5/V6] Lead V3 is missing WARNING: DATA QUALITY MAY AFFECT INTERPRETATION Compared to ECG 05/25/2020 16:46:05 Right-axis deviation now present.T-wave abnormality now presentPossible ischemia now present.Atrial fibrillation no longer present. Incomplete right bundle-branch block no longer present. ST (T wave) deviation no longer present Myocardial infarct finding still present Electronically Signed On 05-25-2020 22:57:56 HELMINTHOLOGY TEACHER by Maria C Waldron M.D. [id number]
[2020-05-25] MEDS: potassium chloride premix 100 ML 50 MEQ IV (18:29)
--- NOTE | 2020-05-25 19:07 | PC.NURSE ---
report received from SEAN Rivas and care transferred to SEAN Chavez
--- NOTE | 2020-05-25 19:12 | ECG_ITS ---
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 Measurements Intervals [place] Rate: 69 P: 97 WI: 147 QRS: 268 QRSD: 86 T: 149 QT: 402 QTc: 432 Interpretive Statements SINUS RHYTHM WITH OCCASIONAL SUPRAVENTRICULAR PREMATURE COMPLEXES MARKED RIGHT AXIS DEVIATION [QRS AXIS > 100] Leads V3 is missing POSSIBLE RIGHT VENTRICULAR CONDUCTION DELAY [RSR (QR) IN V1/V2] SEPTAL MYOCARDIAL INFARCTION [40+ ms Q WAVE IN V1/V2], OF INDETERMINATE AGE MODERATE T-WAVE ABNORMALITY, CONSIDER LATERAL ISCHEMIA [-0.1+ mV T WAVE IN I/aVL/V5/V6] WARNING: DATA QUALITY MAY AFFECT INTERPRETATION Compared to ECG 05/25/2020 16:46:05 Right-axis deviation now present T-wave abnormality now present Possible ischemia now present Atrial fibrillation no longer present.Incomplete right bundle-branch block no longer present.ST (T wave) deviation no longer present Myocardial infarct finding still present Electronically Signed On 05-25-2020 22:50:39 FITTER ARMAMENT by Maria C Waldron M.D. [id number] [place]
[2020-05-25 19:40] LABS: Troponin 5 2HR 61.01 ng/L (0-10)
[2020-05-25 20:14] LABS: Add Urine Microscopic? YES; Bilirubin Urine Neg (Negative); Glucose Urine UA Norm (Normal); Ketones Urine 1+ (Negative); Leukocyte Esterase Urine 2+ (Negative); Nitrate Urine Negative (Negative); Protein Urine Trace (Negative); Specific Gravity, Urine 1.015 (1.005-1.030); Urine Appearance Hazy (CLEAR); Urine Color Yellow (Yellow); Urobilinogen Urine Norm (Negative); pH Urine 5 (5-7)
[2020-05-25 20:17] LABS: Blood Urine 3+ (Negative)
[2020-05-25 20:18] LABS: Add Urine Culture? Yes; Bacteria Urine 2+ /hpf; RBC Urine 80-100 /hpf (0-2); Squamous Epithelial Cell Urine 0-4 /hpf (0-5); WBC Urine 55-80 /hpf (0-5)
[2020-05-25] MEDS: iohexol 300 mg/mL 100 mL Btl IV (20:21)
--- NOTE | 2020-05-25 20:30 | PC.NURSE ---
patient to CT
[2020-05-25] MEDS: cefTRIAXone 1,000 MG in sodium chloride 0.9% (plus) 50 ML 100 MG IV (20:44)
--- NOTE | 2020-05-25 21:06 | PC.NURSE ---
[facility] updated on patient care and interventions by this nurse.
[2020-05-25 22:02] LABS: Lipase 400 U/L (13-60)
--- NOTE | 2020-05-25 22:04 | PM.HP ---
Providers/Chief Complaint Primary Care Provider: Elmer Segovia DO Chief Complaint: R HIP PAIN History of Present Illness Maira Palacio is a 84 year old female who came from [facility] has baseline dementia was recently discharged from [facility] for investigation of right hip pain, today she was brought to our hospital because of electrolyte abnormality. Patient is not able to give me any details, she has baseline dementia she is only oriented to herself, I called prison to get the report, nurses telling me that she is relatively new to their facility but at the [facility] she was refusing all of her medications, she was very noncooperative, there was some confusion regarding whether she had right hip fracture or not, today when she got her blood work back it showed potassium 2.3 and asked why she was sent to our facility. Of note she was tested for COVID-19 on 05/17 and has received remdesivir Decadron regimen. She has also been treated for UTI secondary to Enterococcus faecalis Diagnosis in the ER revealed hypotension, patient is afebrile saturating well on 2 L nasal cannula, only oriented to herself, she is not complaining of any pain abdomen is soft nontender lipase 400 CT abdomen revealed pancreatitis no signs of acute fracture noted, severe leukocytosis without sepsis, severe UTI with 10 mm kidney stone without hydronephrosis, I confirmed CODE STATUS with the facility they do not have any documentation for her goals of care, she will be treated as full code for now Review of Systems General: Reports: ROS unobtainable due to medical condition (Delirium with underlying dementia) Medications/Allergies Home Medications Medication Instructions Recorded Confirmed Last Taken Type dexamethasone 6 mg PO DAILY@08 05/25/20 05/25/20 05/25/20 History lorazepam 0.5 mg PO Q4H PRN 05/25/20 05/25/20 Unknown History magnesium hydroxide [Milk of 30 ml PO DAILY PRN 05/25/20 05/25/20 Unknown History Magnesia] polyethylene glycol 3350 [Miralax] 17 g PO DAILY PRN 05/25/20 05/25/20 Unknown History sennosides-docusate sodium 1 tab-cap PO DAILY PRN 05/25/20 05/25/20 Unknown History [Senna-S] Allergies Allergy/AdvReac Type Severity Reaction Status Date / Time zolpidem [From Ambien] Allergy Unknown Verified 05/25/20 11:35 PFSH Acute PFSH: Medical History Constipation Dementia Fracture of femoral neck, right Malnourished UTI (urinary tract infection) Enterococcus faecalis Surgical History H/O inguinal hernia repair Tubal ligation status Family History Other Family history non-contributory Social History Smoking and tobacco status: never smoked Alcohol intake: never Housing: Intermediate Vitals/I&O/Wt Last Vital Signs Temp 97.9 F 05/25/20 11:26 Pulse 64 05/25/20 21:00 Resp 17 05/25/20 21:00 BP 124/86 05/25/20 21:00 Pulse Ox 100 05/25/20 21:00 05/25/20 05/25/20 05/25/20 06:59 14:59 22:59 Intake Total 150 / 150 Balance 150 / 150 Weight last 48 hrs Weight 52.163 kg Physical Exam Narrative: EXAM NARRATIVE: Frail elderly female Very cachectic malnourished Cold extremities Multiple petechiae on her upper extremities EOMI, PERRLA Only oriented to herself, no neurological deficit, she seems very confused and is not sure where she is at the moment she kept asking about [place] She is moving all of her extremities without any active pain No grimacing when I examined her abdomen with deep palpation, abdomen is soft nontender no signs of peritonitis S1, S2 no tachycardia noted extremely dehydrated malnourished appearance Bilateral breath sounds without use of respiratory accessory muscles Lower extremity cold, pallor positive, no sign of ischemia or gangrene Sacral ulcer present on admission Short attention span, cognitive impaired Data : 05/25/20 17:24 05/25/20 17:24 A&P Assessment and plan (1) Pancreatitis: Status: Acute (2) Sepsis: Status: Acute (3) UTI (urinary tract infection): Status: Acute (4) Fall: Status: Acute Qualifiers: Encounter type: initial encounter Qualified Code(s): W19.XXXA - Unspecified fall, initial encounter Additional A&P Information Acute delirium due to secondary to UTI Previously was diagnosed with Enterococcus faecalis, continue with vancomycin because I do not have any sensitivity report to see if this was VRE or not Severe leukocytosis however no tachycardia lactic acid 2, no tachypnea patient is afebrile Awaiting urine culture 10 mm kidney stone without hydronephrosis Delirium due to UTI with underlying dementia Acute pancreatitis Cause unknown, most likely it is medication induced She has recently finished Decadron and remdesivir regimen for COVID-19, she was diagnosed on 05/17 Lipase 400, n.p.o., D5 LR regimen Dilaudid and Zofran added Right hip pain after a fall No acute fracture identified on CT pelvis or hip x-ray Check B12, TSH Hypokalemia secondary to poor p.o. intake Potassium will be added to her maintenance fluid regimen Check magnesium level BNP 3000 without active signs of fluid overload, no previous diagnosis of congestive heart failure Would not use Lasix as patient looks dehydrated She is not hypoxic or tachycardic will check D-dimer to rule out PE Troponin negative delta troponin EKG showing sinus rhythm with PVCs CODE STATUS discussed with the prison they do not have any official documentation for her goals of care, I will treat her as full code for now kindly readdress in the morning N.p.o. DVT prophylaxis Lovenox Attestations Medical Necessity Statement*: I am anticipating she might stay more than 2 midnights in the hospital secondary to acute delirium, hypokalemia failure to thrive Time Spent in Patient Care: (>than 50% of time spent in counselling and/or direct pt care on unit). 50mins Coding Level of Care Code Acute Consumer Insights Intern for Clark Saeed Diagnoses Pancreatitis K85.90 Sepsis A41.9 UTI (urinary tract infection) N39.0 Fall W19.XXXA Encounter type: initial encounter
[2020-05-26] VITALS: BP 134/86; PULSE 78; RESP 18; TEMP 36.4; O2SAT 95
[2020-05-26 00:10] LABS: Troponin 5 6HR 59.43 ng/L (0-10)
[2020-05-26 00:36] LABS: D Dimer 2.95 ug/mIFEU (0-0.59)
[2020-05-26] MEDS: enoxaparin 40 mg/0.4 mL Syringe SUBCUT (01:39)
[2020-05-26] MEDS: dextrose 5%-ns 0.45% + KCl 40 1,000 ML 125 MEQ IV ×2 (01:39→08:36)
[2020-05-26] MEDS: ampicillin 2,000 MG in sodium chloride 0.9% (plus) 50 ML 100 MG IV ×3 (01:40→10:54)
[2020-05-26 02:40] LABS: Basophils # 0.1 10^3/uL (0.0-0.1); Basophils % 0.4 %; Eosinophils # 0.2 10^3/uL (0.0-0.8); Eosinophils % 0.6 %; Hematocrit 47.6 % (37.0-47.0); Hemoglobin 15.1 g/dL (11.5-15.3); Lymphocytes # 1.3 10^3/uL (0.8-4.8); Lymphocytes % 4.7 %; Mean Corpuscular HGB Conc 31.7 g/dL (30.0-36.0); Mean Corpuscular Hemoglobin 28.2 pg (28.0-34.0); Mean Platelet Volume 12.1 fL (7.4-10.4); Monocytes # 1.8 10^3/uL (0.2-0.9); Monocytes % 6.8 %; Neutrophils # 22.96 10^3/uL (1.8-7.7); Neutrophils % 85.7 %; Nucleated Red Blood Cells % 0 %; Platelet Count 279 10^3/cmm (130-400); Red Blood Count 5.35 10^6/uL (4.1-5.3); Red Cell Distribution Width 13.8 % (12.1-15.1); White Blood Count 26.8 10^3/uL (4.0-10.0)
[2020-05-26 03:05] LABS: Anion Gap 12.3 (5-19); Blood Urea Nitrogen 23 mg/dL (8-23); Calcium 10.6 mg/dL (8.5-10.5); Carbon Dioxide 38 mmol/L (22-29); Chloride 98 mmol/L (98-107); Glucose 128 mg/dL (65-115); Osmolality Calculated 307 mOsm/kg (285-295); Sodium 146 mmol/L (136-145)
[2020-05-26 03:09] LABS: Potassium 2.3 mmol/L (3.5-5.1)
[2020-05-26 03:31] VITALS: BP 127/79; PULSE 79; RESP 16; TEMP 36.6; O2SAT 100
[2020-05-26 04:19] LABS: Lipase 255 U/L (13-60); Thyroid Stimulating Hormone 1.71 uIU/mL (0.27-4.20)
[2020-05-26 04:26] LABS: Vitamin B12 > 2000 pg/mL (232-1245)
[2020-05-26] MEDS: Fleet Enema 133 mL Enema PR (05:34)
[2020-05-26 07:07] VITALS: BP 115/82; PULSE 60; RESP 14; TEMP 36.4; O2SAT 100
[2020-05-26] MEDS: sennosides-docusate Tablet 1 TAB PO (08:38)
[2020-05-26 11:20] LABS: SARS Covid-2 Antigen Negative (Negative)
[2020-05-26 11:32] VITALS: BP 123/81; PULSE 60; RESP 15; TEMP 36.3; O2SAT 97
[2020-05-26 15:30] VITALS: BP 130/86; PULSE 66; RESP 16; O2SAT 97
--- NOTE | 2020-05-26 15:58 | US_ITS ---
WS: [id number] ABDOMINAL ULTRASOUND LIMITED REASON FOR VISIT: Gallbladder evaluation for cholecystitis or cholelithiasis TECHNIQUE: Grayscale and Doppler ultrasound examination of the abdomen. FINDINGS: Pancreas: CT scan of 05/25/2020 demonstrates an edematous pancreas. Cannot identify this abnormality on ultrasound. Abdominal aorta and IVC: Normal Liver: Liver measures 13.8 cm in length. There is a mass in the liver slightly more echogenic than li chantale parenchyma immediately superior to the gallbladder. This measures approximately 2 cm in maximum d imension. Gallbladder: Gallbladder is markedly distended and filled with sludge. No calculi identified. Common bile duct is not dilated. Right kidney: Right kidney measures 10.0 cm x 5.6 cm x 5.8 cm. The calculi seen on the CT scan of are not identified on the ultrasound exam. There is a 1 cm cyst. No free fluid. US/US abdomen limited [id number] IMPRESSION: No gallbladder calculi as above. No bile duct dilatation. No abnormality of the pancreas demonstrated however CT scan demonstrates pancreatic edema. The mass seen on ultrasound in the liver appears to correlate with an area of v ague low attenuation in the medial most aspect of segment 5 with margin of mild ly enhancing liver parenchyma. This abnormality is identified on previous CT sc ans in 2014 and 2008. It has not changed. It may represent an atypical cavernou s hemangioma or alteration in the liver perfusion. Not of clinical significance .
--- NOTE | 2020-05-26 16:05 | PM.PN ---
Subjective Subjective: Interval history: The patient is still confused and mostly disoriented. No acute distress. Following instructions. Denies any active complaints. Denies any pain. No nausea or vomiting. No bowel movements. No chest pain or shortness of breath. Medications: Reviewed: Yes Medication Review Details: Generic Name Dose Route Start Last Admin Trade Name Wilberto PRN Reason Stop Dose Admin Potassium Chloride /Dextrose/Sod Cl 1,000 mls @ 125 m ls/hr 05/25/20 23:55 05/26/20 11:00 Dextrose 5%-Ns 0 .45% + Kcl 40 IV 0 mls/hr .Q8H MARTIN Infusion Senna/Docusate Sod ium 1 tab 05/26/20 09:00 05/26/20 08:38 Sennosides-Docus ate Tablet PO 1 tab DAILY MARTIN Administration Vitals/I&O/Wt Last Vital Signs Temp 97.4 F L 05/26/20 11:32 Pulse 66 05/26/20 15:30 Resp 16 05/26/20 15:30 BP 130/86 05/26/20 15:30 Pulse Ox 97 05/26/20 15:30 05/26/20 05/26/20 05/26/20 06:59 14:59 22:59 Intake Total 50 / 200 1168.75 / 1168.75 Output Total 450 / 450 400 / 400 Balance -400 / -250 768.75 / 768.75 Weight last 48 hrs Weight 52.163 kg Physical Exam Narrative: EXAM NARRATIVE: Disoriented and confused. No acute distress Skin is warm and dry Dry mucous membranes Neck supple no JVD Lungs clear. No respiratory distress Heart S1, S2, regular Abdomen is soft, nontender, bowel sounds are present Extremities trace pedal edema. No cyanosis or calf tenderness bilaterally. Neurologic exam is nonfocal Data : 05/26/20 02:04 05/26/20 02:04 Other Labs: Laboratory Results WBC 26.8 10^3/uL (4.0-10.0) H 05/26/20 02:04 RBC 5.35 10^6/uL (4.1-5.3) H 05/26/20 02:04 Hgb 15.1 g/dL (11.5-15.3) 05/26/20 02:04 Hct 47.6 % (37.0-47.0) H 05/26/20 02:04 MCV 89.0 fL (81-99) 05/26/20 02:04 MCH 28.2 pg (28.0-34.0) 05/26/20 02:04 MCHC 31.7 g/dL (30.0-36.0) 05/26/20 02:04 RDW 13.8 % (12.1-15.1) 05/26/20 02:04 Plt Count 279 10^3/cmm (130-400) 05/26/20 02:04 MPV 12.1 fL (7.4-10.4) H 05/26/20 02:04 Neut % (Auto) 85.7 % 05/26/20 02:04 Lymph % (Auto) 4.7 % 05/26/20 02:04 [place] % (Auto) 6.8 % 05/26/20 02:04 Eos % (Auto) 0.6 % 05/26/20 02:04 Baso % (Auto) 0.4 % 05/26/20 02:04 Neut # (Auto) 22.96 10^3/uL (1.8-7.7) H 05/26/20 02:04 Lymph # (Auto) 1.3 10^3/uL (0.8-4.8) 05/26/20 02:04 [place] # (Auto) 1.8 10^3/uL (0.2-0.9) H 05/26/20 02:04 Eos # (Auto) 0.2 10^3/uL (0.0-0.8) 05/26/20 02:04 Baso # (Auto) 0.1 10^3/uL (0.0-0.1) 05/26/20 02:04 Nucleated RBC % (auto) 0 % 05/26/20 02:04 Nucleated RBCs # 0.0 /100WBC 05/26/20 02:04 D-Dimer 2.95 ug/mIFEU (0-0.59) H 05/25/20 17:24 Sodium 146 mmol/L (136-145) H 05/26/20 02:04 Potassium 2.3 mmol/L (3.5-5.1) L* 05/26/20 02:04 Chloride 98 mmol/L (98-107) 05/26/20 02:04 Carbon Dioxide 38 mmol/L (22-29) H 05/26/20 02:04 Anion Gap 12.3 (5-19) 05/26/20 02:04 BUN 23 mg/dL (8-23) 05/26/20 02:04 Creatinine 0.8 mg/dL (0.5-0.9) 05/26/20 02:04 GFR Calculation Not Reportable 05/26/20 02:04 Glucose 128 mg/dL (65-115) H 05/26/20 02:04 Calculated Osmolality 307 mOsm/kg (285-295) H 05/26/20 02:04 Lactic Acid 2.0 mmol/L (0.5-2.2) 05/25/20 17:24 Calcium 10.6 mg/dL (8.5-10.5) H 05/26/20 02:04 Total Bilirubin 1.2 mg/dL (0.15-1.2) 05/25/20 17:24 AST 35 U/L (0-32) H 05/25/20 17:24 ALT 33 U/L (0-33) 05/25/20 17:24 Alkaline Phosphatase 110 IU/L (35-105) H 05/25/20 17:24 Troponin T Baseline 70 ng/L (0-10) H 05/25/20 17:24 Troponin T 120 Minute 61.01 ng/L (0-10) H 05/25/20 19:16 Delta Troponin T -8.99 ABS# (0-10) L 05/25/20 19:16 Troponin T Hi Sens 6Hr 59.43 ng/L (0-10) H 05/25/20 23:23 Troponin T Hi Sens 6Hr Delta -10.57 ng/L (0-12) L 05/25/20 23:23 NT-Pro-B Natriuret Pep 3140 pg/mL (0-450) H 05/25/20 17:24 Total Protein 5.5 g/dL (6.6-8.7) L 05/25/20 17:24 Albumin 2.8 g/dL (3.5-5.2) L 05/25/20 17:24 Globulin 2.7 g/dL (1.3-4.6) 05/25/20 17:24 Lipase 255 U/L (13-60) H 05/26/20 02:04 Vitamin B12 > 2000 pg/mL (232-1245) H 05/26/20 02:04 TSH 1.71 uIU/mL (0.27-4.20) 05/26/20 02:04 Urine Color Yellow (Yellow) 05/25/20 19:25 Urine Appearance Hazy (CLEAR) A 05/25/20 19:25 Urine pH 5 (5-7) 05/25/20 19:25 Ur Specific [place] 1.015 (1.005-1.030) 05/25/20 19:25 Urine Protein Trace (Negative) 05/25/20 19:25 Urine Glucose (UA) Norm (Normal) 05/25/20 19:25 Urine Ketones 1+ (Negative) H 05/25/20 19:25 Urine Blood 3+ (Negative) H 05/25/20 19:25 Urine Nitrate Negative (Negative) 05/25/20 19:25 Urine Bilirubin Neg (Negative) 05/25/20 19:25 Urine Urobilinogen Norm mg/dL (Negative) 05/25/20 19:25 Ur Leukocyte Esterase 2+ (Negative) H 05/25/20 19:25 Urine RBC 80-100 /hpf (0-2) H 05/25/20 19:25 Urine WBC 55-80 /hpf (0-5) H 05/25/20 19:25 Ur Squamous Epith Cells 0-4 /hpf (0-5) H 05/25/20 19:25 Amorphous Sediment Not Reportable 05/25/20 19:25 Urine Bacteria 2+ /hpf (NONE) H 05/25/20 19:25 SARS-CoV-2 Ag (Rapid) Negative (Negative) 05/26/20 10:[address] 05/25/20 11:44 IMPRESSION: 1. No acute intracranial hemorrhage or edema. 2. Moderate atrophy and chronic ischemic disease. Hip/Pelvis X-Ray 05/25/20 11:44 IMPRESSION: Osteoarthropathy. No fracture identified. Chest X-Ray 05/25/20 16:26 IMPRESSION: 1. The lungs are hyperinflated, consistent with COPD. 2. No acute abnormality demonstrated. Abdomen/Pelvis CT 05/25/20 17:44 IMPRESSION: 1. There is mild edema seen surrounding the pancreas. This is suggestive of acute pancreatitis. No evidence of pancreatic hemorrhage or necrosis. Correlation with additional laboratory data is suggested. This is new when compared to 09/10/2014. 2. Gallbladder is distended. No calcified gallstones. Mild mural thickening. No pericholecystic fluid. No biliary dilatation. 3. Diverticulosis of the colon; no acute diverticulitis. 4. Large volume of retained stool in the rectum, suggesting constipation versus fecal impaction. Minimal perirectal edema noted. No pneumatosis of the rectum. COMMENTS: Consistent with the [employer]'s Incidental Findings Committee white paper (J Am Manjeet Radiol 2018): Any incidental renal lesion less than 1 cm or classified as too small to characterize, or any incidental cystic renal lesion characterized as simple-appearing, is likely benign. No follow-up imaging is recommended for these lesions per consensus recommendations based on imaging criteria. Radiation Dose CTDIVOL = (mGy): DLP = 268.16 (mGy-cm) Micro: Microbiology 05/26/20 02:04 Blood Culture - Preliminary Blood SPECIMEN COLLECTED 05/25/20 17:35 Blood Culture - Preliminary Blood SPECIMEN COLLECTED A&P Additional A&P Information Acute delirium due to secondary to UTI Previously was diagnosed with Enterococcus faecalis, continue with vancomycin because I do not have any sensitivity report to see if this was VRE or not Severe leukocytosis however no tachycardia lactic acid 2, no tachypnea patient is afebrile Awaiting urine culture 10 mm kidney stone without hydronephrosis Delirium due to UTI with underlying dementia Acute pancreatitis Cause unknown, most likely it is medication induced She has recently finished Decadron and remdesivir regimen for COVID-19, she was diagnosed on 05/17 Lipase 400, n.p.o., D5 LR regimen Dilaudid and Zofran added Right hip pain after a fall No acute fracture identified on CT pelvis or hip x-ray Check B12, TSH Hypokalemia secondary to poor p.o. intake Potassium will be added to her maintenance fluid regimen Check magnesium level BNP 3000 without active signs of fluid overload, no previous diagnosis of congestive heart failure Would not use Lasix as patient looks dehydrated She is not hypoxic or tachycardic will check D-dimer to rule out PE Troponin negative delta troponin EKG showing sinus rhythm with PVCs CODE STATUS discussed with the senior living they do not have any official documentation for her goals of care, I will treat her as full code for now kindly readdress in the morning N.p.o. DVT prophylaxis Lovenox [place] Acute metabolic encephalopathy/acute delirium secondary to problems listed below. Sepsis. Possible sources are UTI, cholecystitis?, SIRS secondary to pancreatitis. Cultures are pending. We will switch her back to Zosyn to cover UTI and GI pathogens. Pancreatitis acute. Will order ultrasound to rule out cholelithiasis. Has hypercalcemia which is not very severe and mostly probably related to dehydration. We will check her triglycerides. We will continue pain management and IV fluids. Hypotension probably secondary to above. Currently resolved. Continue IV fluids. A. fib. Currently converted back to sinus. We will monitor her on telemetry. Non-ST elevation ischemic changes on EKG mostly diffuse consistent with subendocardial injury, abnormal troponin, probably secondary to hypotension, demand ischemia. Currently no chest pain. However we will start her on aspirin and increase the dose of Lovenox to therapeutic. (This is mainly due to the fact that she was diagnosed with Covid recently and her D-dimer is elevated). Considering her sepsis and Covid status she is not a candidate for cardiac catheterization. We will continue conservative management. We will consult cardiology if she develops chest pain. Recent Covid. No acute respiratory failure. However D-dimer is elevated. We will put her on full dose of Lovenox Constipation. Bowel regiment is ordered. Hypokalemia. Replaced today. Will recheck in the morning. Will replace as needed. Hypercalcemia. Probably secondary to dehydration. Will hydrate and monitor. Attestations Medical Necessity Statement*: Based on the problems listed above need for aggressive management she will require inpatient hospitalization Coding Level of Care Code Acute Leasing Representative for [facility]
[2020-05-26] MEDS: piperacillin-tazobactam 3.375 GM in sodium chloride 0.9% (plus) 50 ML IV (17:23)
[2020-05-26] MEDS: bisacodyl 10 mg Supp PR (17:24)
[2020-05-26] MEDS: enoxaparin 60 mg/0.6 mL Syringe 50 MG SUBCUT (17:24)
--- NOTE | 2020-05-26 18:20 | PC.NURSE ---
shift summary pt has had small bm per paris garcía, pt has refused ice chips from this nurse, so i have used mouth swabs to moisten her mouth. pt does not say much when asked a question or when in the room providing her care. no changes this shift.
[2020-05-26 20:00] VITALS: BP 125/77; PULSE 64; RESP 18; TEMP 36.7; O2SAT 97
[2020-05-27] VITALS: BP 100/54; PULSE 73; RESP 18; TEMP 36.8; O2SAT 97
[2020-05-27 01:08] LABS: Lactate (Lactic Acid level) 3.1 mmol/L (0.5-2.2)
[2020-05-27 01:21] LABS: Lipase 406 U/L (13-60)
[2020-05-27] MEDS: dextrose 5%-ns 0.45% + KCl 40 1,000 ML 125 MEQ IV ×3 (01:49→21:23)
[2020-05-27] MEDS: piperacillin-tazobactam 3.375 GM in sodium chloride 0.9% (plus) 50 ML IV ×3 (01:50→18:03)
[2020-05-27 04:00] VITALS: BP 119/77; PULSE 58; RESP 19; TEMP 36.2; O2SAT 96
[2020-05-27 04:53] LABS: Basophils # 0.1 10^3/uL (0.0-0.1); Basophils % 0.2 %; Eosinophils # 0.1 10^3/uL (0.0-0.8); Eosinophils % 0.2 %; Hematocrit 40.1 % (37.0-47.0); Hemoglobin 10.9 g/dL (11.5-15.3); Lymphocytes # 0.6 10^3/uL (0.8-4.8); Lymphocytes % 2.3 %; Mean Corpuscular HGB Conc 27.2 g/dL (30.0-36.0); Mean Corpuscular Hemoglobin 29.4 pg (28.0-34.0); Mean Corpuscular Volume 108.1 fL (81-99); Mean Platelet Volume 12.1 fL (7.4-10.4); Monocytes % 4.1 %; Neutrophils # 22.01 10^3/uL (1.8-7.7); Neutrophils % 91.6 %; Nucleated Red Blood Cells % 0 %; Platelet Count 194 10^3/cmm (130-400); Red Blood Count 3.71 10^6/uL (4.1-5.3); Red Cell Distribution Width 14.8 % (12.1-15.1)
[2020-05-27 05:29] LABS: Troponin T (5th) Once 47 ng/L (0-10)
[2020-05-27] MEDS: enoxaparin 60 mg/0.6 mL Syringe 50 MG SUBCUT (05:41)
[2020-05-27 06:46] LABS: D Dimer 3.05 ug/mIFEU (0-0.59)
[2020-05-27] MEDS: aspirin 81 mg EC Tablet PO (07:51)
[2020-05-27] MEDS: sennosides-docusate Tablet 1 TAB PO (07:51)
[2020-05-27 08:00] VITALS: BP 122/79; PULSE 57; RESP 15; TEMP 36.1; O2SAT 92
[2020-05-27 11:43] VITALS: BP 112/70; PULSE 60; RESP 15; TEMP 36.4; O2SAT 92
[2020-05-27] MEDS: lidocaine 1% INJ 20 mL 5 ML IV (11:48)
[2020-05-27] MEDS: potassium chloride premix 100 ML 25 MEQ IV (11:48)
--- NOTE | 2020-05-27 14:02 | PM.PN ---
Subjective Subjective: Interval history: The patient is more awake and less confused. Minimal verbal response. Follows instructions. Denies any active complaints. Denies any pain. No nausea or vomiting. No bowel movements. No chest pain or shortness of breath. Medications: Reviewed: Yes Medication Review Details: Generic Name Dose Route Start Last Admin Trade Name Wilberto PRN Reason Stop Dose Admin Potassium Chloride /Dextrose/Sod Cl 1,000 mls @ 125 m ls/hr 05/25/20 23:55 05/26/20 11:00 Dextrose 5%-Ns 0 .45% + Kcl 40 IV 0 mls/hr .Q8H MARTIN Infusion Senna/Docusate Sod ium 1 tab 05/26/20 09:00 05/26/20 08:38 Sennosides-Docus ate Tablet PO 1 tab DAILY MARTIN Administration Vitals/I&O/Wt Last Vital Signs Temp 97.6 F 05/27/20 11:43 Pulse 60 05/27/20 11:43 Resp 15 05/27/20 11:43 BP 112/70 05/27/20 11:43 Pulse Ox 92 05/27/20 11:43 05/26/20 05/27/20 05/27/20 22:59 06:59 14:59 Intake Total 750 / 1918.75 52.083 / 1970.833 60 60 Output Total 500 / 900 300 / 1200 Balance 250 / 1018.75 -247.917 / 770.833 Physical Exam Narrative: EXAM NARRATIVE: Disoriented and confused. No acute distress Skin is warm and dry MMM Neck supple no JVD Lungs clear. No respiratory distress Heart S1, S2, regular Abdomen is soft, nontender, bowel sounds are present Extremities trace pedal edema. No cyanosis or calf tenderness bilaterally. Neurologic exam is nonfocal Data : 05/27/20 04:02 05/26/20 02:04 Micro: Microbiology 05/25/20 19:25 Urine Culture - Preliminary Urine,Clean Catch 05/26/20 02:04 Blood Culture - Preliminary Blood NEGATIVE TO DATE 05/25/20 17:35 Blood Culture - Preliminary Blood NEGATIVE TO DATE A&P Assessment and plan (1) Pancreatitis: Status: Acute (2) Sepsis: Status: Acute (3) UTI (urinary tract infection): Status: Acute (4) Fall: Status: Acute Qualifiers: Encounter type: initial encounter Qualified Code(s): W19.XXXA - Unspecified fall, initial encounter Additional A&P Information Acute delirium due to secondary to UTI Previously was diagnosed with Enterococcus faecalis, continue with vancomycin because I do not have any sensitivity report to see if this was VRE or not Severe leukocytosis however no tachycardia lactic acid 2, no tachypnea patient is afebrile Awaiting urine culture 10 mm kidney stone without hydronephrosis Delirium due to UTI with underlying dementia Acute pancreatitis Cause unknown, most likely it is medication induced She has recently finished Decadron and remdesivir regimen for COVID-19, she was diagnosed on 05/17 Lipase 400, n.p.o., D5 LR regimen Dilaudid and Zofran added Right hip pain after a fall No acute fracture identified on CT pelvis or hip x-ray Check B12, TSH Hypokalemia secondary to poor p.o. intake Potassium will be added to her maintenance fluid regimen Check magnesium level BNP 3000 without active signs of fluid overload, no previous diagnosis of congestive heart failure Would not use Lasix as patient looks dehydrated She is not hypoxic or tachycardic will check D-dimer to rule out PE Troponin negative delta troponin EKG showing sinus rhythm with PVCs CODE STATUS discussed with the senior living they do not have any official documentation for her goals of care, I will treat her as full code for now kindly readdress in the morning N.p.o. DVT prophylaxis Lovenox [place] Acute metabolic encephalopathy/acute delirium secondary to problems listed below, probably on top of chronic dementia. Currently improving. Sepsis probably secondary to UTI or SIRS secondary to pancreatitis. Abdominal imaging did reveal gallbladder disease or biliary problems. Cultures are pending. We will continue Zosyn for now. Acute pancreatitis. Has hypercalcemia which is not very severe and mostly probably related to dehydration. We will check her triglycerides. We will continue pain management and IV fluids. Improving. We will start the diet with close monitoring of her symptoms and lipase level. Hypokalemia. Will replace and monitor. Hypotension probably secondary to above. Currently resolved. Continue IV fluids. A. fib. Currently converted back to sinus. We will monitor her on telemetry. Non-ST elevation ischemic changes on EKG mostly diffuse consistent with subendocardial injury, abnormal troponin, probably secondary to hypotension, demand ischemia. Currently no chest pain. However we will continue aspirin and Lovenox. Considering her sepsis and Covid status she is not a candidate for cardiac catheterization. We will continue conservative management. We will consult cardiology if she develops chest pain. Anemia. I suspect the drop of hemoglobin is mainly related to improved hydration. However I will check fecal occult blood test. For now I will decrease the dose of Lovenox. DVT prophylaxis and recent Covid. No acute respiratory failure. However D-dimer is elevated. Decreased dose of Lovenox due to anemia. Constipation. Bowel regiment is ordered. Hypercalcemia. Probably secondary to dehydration. Will hydrate and monitor. Attestations Medical Necessity Statement*: The patient still requires inpatient hospitalization for continuation of management of her problems listed above for IV fluids and additional testing. Coding Level of Care Code Acute Med Care Manager for [facility] Fwd Diagnoses Pancreatitis K85.90 Sepsis A41.9 UTI (urinary tract infection) N39.0 Fall W19.XXXA Encounter type: initial encounter
[2020-05-27 16:00] VITALS: BP 123/72; PULSE 67; RESP 16; TEMP 36.6; O2SAT 93
[2020-05-27 17:00] LABS: Albumin Level 2.3 g/dL (3.5-5.2); Anion Gap 11.9 (5-19); Blood Urea Nitrogen 19 mg/dL (8-23); Calcium 10.9 mg/dL (8.5-10.5); Carbon Dioxide 31 mmol/L (22-29); Chloride 106 mmol/L (98-107); Creatine Phosphokinase 15 U/L (26-192); Glucose 201 mg/dL (65-115); Phosphorus 2.1 mg/dL (2.5-4.5); Potassium 3.9 mmol/L (3.5-5.1); Sodium 145 mmol/L (136-145)
[2020-05-27 17:07] LABS: Basophils # 0.1 10^3/uL (0.0-0.1); Basophils % 0.5 %; Eosinophils # 0.1 10^3/uL (0.0-0.8); Eosinophils % 0.5 %; Hematocrit 49.4 % (37.0-47.0); Hemoglobin 15.1 g/dL (11.5-15.3); Lymphocytes # 0.9 10^3/uL (0.8-4.8); Lymphocytes % 4.3 %; Mean Corpuscular HGB Conc 30.6 g/dL (30.0-36.0); Mean Corpuscular Hemoglobin 29.1 pg (28.0-34.0); Mean Corpuscular Volume 95.2 fL (81-99); Mean Platelet Volume 11.1 fL (7.4-10.4); Monocytes % 4.7 %; Neutrophils # 18.37 10^3/uL (1.8-7.7); Neutrophils % 88.1 %; Nucleated Red Blood Cells % 0 %; Platelet Count 305 10^3/cmm (130-400); Red Blood Count 5.19 10^6/uL (4.1-5.3); Red Cell Distribution Width 14.5 % (12.1-15.1); White Blood Count 20.9 10^3/uL (4.0-10.0)
--- NOTE | 2020-05-27 18:46 | PC.NURSE ---
shift summary pt has not been verbal this shift. she has only stated her name and date of for this nurse, she will shake her head yes, no, and shrug shoulders for i don't know when asking her questions. she will not take in any food or drinks orally. she has removed two iv's out of left arm. physician is aware of these findings.
[2020-05-27 20:00] VITALS: BP 126/73; PULSE 65; RESP 18; TEMP 36.4; O2SAT 97
[2020-05-27] MEDS: enoxaparin 40 mg/0.4 mL Syringe SUBCUT (21:21)
[2020-05-27 21:56] LABS: Alanine Aminotransferase 32 U/L (0-33); Albumin Level 2.2 g/dL (3.5-5.2); Alkaline Phosphatase 95 IU/L (35-105); Anion Gap 13.1 (5-19); Aspartate Amino Transferase 28 U/L (0-32); Blood Urea Nitrogen 20 mg/dL (8-23); Carbon Dioxide 30 mmol/L (22-29); Chloride 107 mmol/L (98-107); Chol HDL Ratio 5.81 mg/dL (0.0-4.40); Cholesterol 122 mg/dL (0-200); Creatinine Clr Calc Pharmacy 40.7224; Globulin 3.1 g/dL (1.3-4.6); Glucose 213 mg/dL (65-115); HDL Cholesterol 21 mg/dL (60-100); LDL Cholesterol Calculated 75 mg/dL (50-129); LDL HDL Ratio 3.57 RATIO (0.00-3.22); Lipase 226 U/L (13-60); Magnesium 1.7 mg/dL (1.7-2.3); Osmolality Calculated 311 mOsm/kg (285-295); Potassium 4.1 mmol/L (3.5-5.1); Sodium 146 mmol/L (136-145); Total Bilirubin 0.8 mg/dL (0.15-1.2); Total Protein 5.3 g/dL (6.6-8.7); Triglycerides 131 mg/dL (0-150)
--- NOTE | 2020-05-27 23:04 | PC.NURSE ---
Patient continues to pull out IV and pulling catheter. Patient told me her name but other than that refuses to speak. Patient does shake her head yes or no to answer questions and waves her hand in a lacsidaisical manner to express uncertainty. Patient also was digging and playing with her feces. Provider notified and order for zyprexa IM 10 mg once was given with follow up haldol IV q 3 hours as needed. Will continue to monitor and assist as needed.
[2020-05-27] MEDS: OLANZapine 10 mg VIAL IM (23:39)
[2020-05-28] VITALS (7 sets, daily range): BP systolic 116–147; BP diastolic 72–85; PULSE 62–73; RESP 14–18; TEMP 36–37.3; O2SAT 93–96
[2020-05-28] MEDS: piperacillin-tazobactam 3.375 GM in sodium chloride 0.9% (plus) 50 ML IV ×3 (01:05→19:54)
[2020-05-28] MEDS: dextrose 5%-ns 0.45% + KCl 40 1,000 ML 50 MEQ IV (01:36)
[2020-05-28 04:48] LABS: Basophils # 0.1 10^3/uL (0.0-0.1); Basophils % 0.4 %; Eosinophils # 0.1 10^3/uL (0.0-0.8); Eosinophils % 0.4 %; Hematocrit 50.3 % (37.0-47.0); Hemoglobin 15.8 g/dL (11.5-15.3); Lymphocytes # 0.8 10^3/uL (0.8-4.8); Lymphocytes % 4.5 %; Mean Corpuscular HGB Conc 31.4 g/dL (30.0-36.0); Mean Corpuscular Hemoglobin 28.6 pg (28.0-34.0); Mean Corpuscular Volume 91.1 fL (81-99); Monocytes # 0.5 10^3/uL (0.2-0.9); Neutrophils # 14.83 10^3/uL (1.8-7.7); Neutrophils % 89.5 %; Nucleated Red Blood Cells % 0 %; Platelet Count 325 10^3/cmm (130-400); Red Blood Count 5.52 10^6/uL (4.1-5.3); White Blood Count 16.6 10^3/uL (4.0-10.0)
[2020-05-28 06:49] LABS: Alanine Aminotransferase 28 U/L (0-33); Albumin Level 2.3 g/dL (3.5-5.2); Alkaline Phosphatase 85 IU/L (35-105); Anion Gap 11.8 (5-19); Aspartate Amino Transferase 23 U/L (0-32); Blood Urea Nitrogen 22 mg/dL (8-23); Calcium 11.1 mg/dL (8.5-10.5); Carbon Dioxide 31 mmol/L (22-29); Chloride 109 mmol/L (98-107); Creatinine Clr Calc Pharmacy 40.7224; Globulin 2.9 g/dL (1.3-4.6); Glucose 170 mg/dL (65-115); Lipase 199 U/L (13-60); Magnesium 1.5 mg/dL (1.7-2.3); Osmolality Calculated 313 mOsm/kg (285-295); Potassium 3.8 mmol/L (3.5-5.1); Sodium 148 mmol/L (136-145); Total Protein 5.2 g/dL (6.6-8.7)
[2020-05-28] MEDS: haloperidol inj 5 mg/mL INJ 1 mL 1 MG IVP ×2 (08:28→11:47)
--- NOTE | 2020-05-28 11:50 | PC.SOCIAL ---
Pg 2 IMM Explained to pt's , via phone, Pg 2 IMM. Provided pt a copy. No questions voiced. Signed, dated, & timed a copy & placed in chart.
[2020-05-28] MEDS: magnesium sulfate premix 2 GM/50 ML PIGGYBACK IV (14:17)
--- NOTE | 2020-05-28 14:44 | P.PN_ITS ---
Subjective Subjective: Interval history: No significant changes or events. The patient refuses food and liquids. No pain. No chest pain or shortness of breath. No cough. No nausea or vomiting. Medications: Reviewed: Yes Medication Review Details: Generic Name Dose Route Start Last Admin Trade Name Freq PRN Reason Stop Dose Admin Aspirin 81 mg 05/27/20 09:00 05/28/20 10:04 Aspirin 81 Mg Ec Tablet PO Not Given DAILY MARTIN Enoxaparin Sodium 40 mg 05/27/20 20:00 05/27/20 21:21 Enoxaparin 40 Mg /0.4 Ml Syringe SUBCUT 40 mg Q24H MARTIN Administration Haloperidol Lactat e 1 mg 05/27/20 22:56 05/28/20 11:47 Haloperidol Inj 5 Mg/Ml Inj 1 Ml IVP 1 mg Q3H PRN Administration AGITATION Potassium Chloride /Dextrose/Sod Cl 1,000 mls @ 75 ml s/hr 05/25/20 23:55 05/28/20 01:36 Dextrose 5%-Ns 0 .45% + Kcl 40 IV 50 mls/hr .[id number] MARTIN Administration Piperacillin Sod/T azobactam 50 mls @ 12.5 mls /hr 05/26/20 17:00 05/28/20 09:17 Sod 3.375 gm/ So dium Chloride IV 12.5 mls/hr Q8H MARTIN Administration Protocol Senna/Docusate Sod ium 1 tab 05/26/20 09:00 05/28/20 10:05 Sennosides-Docus ate Tablet PO Not Given DAILY MARTIN Vitals/I&O/Wt Last Vital Signs Temp 97.7 F 05/28/20 10:56 Pulse 66 05/28/20 10:56 Resp 14 05/28/20 10:56 BP 116/75 05/28/20 10:56 Pulse Ox 94 05/28/20 10:56 05/27/20 05/28/20 05/28/20 22:59 06:59 14:59 Intake Total 60 / 1170 927.083 / 2097.083 Output Total 1500 / 1500 400 / 1900 850 / 850 Balance -1440 / -330 527.083 / 197.083 -850 / -850 Physical Exam Narrative: EXAM NARRATIVE: Awake and alert. Flat affect is present. Does not talk. No acute distress Skin is warm and dry MMM Neck supple no JVD Lungs clear. No respiratory distress Heart S1, S2, regular Abdomen is soft, nontender, bowel sounds are present Extremities trace pedal edema. No cyanosis or calf tenderness bilaterally. Neurologic exam is nonfocal Data : 05/28/20 04:35 05/28/20 06:17 Micro: Microbiology 05/25/20 19:25 Urine Culture - Final Urine,Clean Catch A&P Assessment and plan (1) Pancreatitis: Status: Acute (2) Sepsis: Status: Acute (3) UTI (urinary tract infection): Status: Acute (4) Fall: Status: Acute Qualifiers: Encounter type: initial encounter Qualified Code(s): W19.XXXA - Unspecified fall, initial encounter Additional A&P Information Acute delirium due to secondary to UTI Previously was diagnosed with Enterococcus faecalis, continue with vancomycin because I do not have any sensitivity report to see if this was VRE or not Severe leukocytosis however no tachycardia lactic acid 2, no tachypnea patient is afebrile Awaiting urine culture 10 mm kidney stone without hydronephrosis Delirium due to UTI with underlying dementia Acute pancreatitis Cause unknown, most likely it is medication induced She has recently finished Decadron and remdesivir regimen for COVID-19, she was diagnosed on 05/17 Lipase 400, n.p.o., D5 LR regimen Dilaudid and Zofran added Right hip pain after a fall No acute fracture identified on CT pelvis or hip x-ray Check B12, TSH Hypokalemia secondary to poor p.o. intake Potassium will be added to her maintenance fluid regimen Check magnesium level BNP 3000 without active signs of fluid overload, no previous diagnosis of congestive heart failure Would not use Lasix as patient looks dehydrated She is not hypoxic or tachycardic will check D-dimer to rule out PE Troponin negative delta troponin EKG showing sinus rhythm with PVCs CODE STATUS discussed with the shelter they do not have any official documentation for her goals of care, I will treat her as full code for now kindly readdress in the morning N.p.o. DVT prophylaxis Lovenox [place] Acute metabolic encephalopathy/acute delirium secondary to problems listed below, probably on top of chronic dementia. Resolving Sepsis probably secondary to UTI or SIRS secondary to pancreatitis. Abdominal imaging did reveal gallbladder disease or biliary problems. Cultures are pending. We will continue Zosyn for now. Acute pancreatitis. Resolving. The diet is liberalized. However the patient d oes not eat. Hypercalcemia. I suspect this is due to dehydration and prolonged immobilization, not moving. We will continue hydration and monitoring. Hypokalemia. Will replace and monitor. Hypotension probably secondary to above. Currently resolved. Continue IV fluids. A. fib. Currently converted back to sinus. We will monitor her on telemetry. Non-ST elevation ischemic changes on EKG mostly diffuse consistent with subendocardial injury, abnormal troponin, probably secondary to hypotension, demand ischemia. Currently no chest pain. However we will continue aspirin and Lovenox. Considering her sepsis and Covid status she is not a candidate for cardiac catheterization. We will continue conservative management. We will consult cardiology if she develops chest pain. Anemia. Probably was a lab error. Currently her hemoglobin is increased DVT prophylaxis and recent Covid. No acute respiratory failure. However D- dimer is elevated. Resume full dose Lovenox. Constipation. Continue bowel regimen. Not eating. Will need to discuss with the family about the possibility putting NG or PEG for nutrition. Advance care planning. Had a long discussion with patient's daughter. The patient has previously expressed wishes of not wanting to prolong her life. However the daughter would like to speak with the rest of the family members including her current and her son about CODE STATUS and nutrition. CODE STATUS. Remains in full code for now 35 minutes spent on this encounter Attestations Medical Necessity Statement*: The plan of care requires inpatient hosp italization Coding Level of Care Code Acute Nuclear Medicine Medical Director for [facility] Fwd Diagnoses Pancreatitis K85.90 Sepsis A41.9 UTI (urinary tract infection) N39.0 Fall W19.XXXA Encounter type: initial encounter
[2020-05-28] MEDS: potassium chloride premix 100 ML 25 MEQ IV (15:07)
[2020-05-28] MEDS: enoxaparin 60 mg/0.6 mL Syringe 50 MG SUBCUT (15:08)
[2020-05-29] MEDS: piperacillin-tazobactam 3.375 GM in sodium chloride 0.9% (plus) 50 ML IV ×3 (01:59→16:35)
[2020-05-29 04:00] VITALS: BP 131/84; PULSE 74; RESP 18; TEMP 36.4; O2SAT 95
[2020-05-29] MEDS: enoxaparin 60 mg/0.6 mL Syringe 50 MG SUBCUT ×2 (05:09→13:52)
[2020-05-29 05:15] LABS: Basophils # 0.1 10^3/uL (0.0-0.1); Basophils % 0.4 %; Eosinophils # 0.1 10^3/uL (0.0-0.8); Eosinophils % 0.5 %; Hematocrit 44.7 % (37.0-47.0); Hemoglobin 13.8 g/dL (11.5-15.3); Lymphocytes # 0.6 10^3/uL (0.8-4.8); Lymphocytes % 4.8 %; Mean Corpuscular HGB Conc 30.9 g/dL (30.0-36.0); Mean Corpuscular Hemoglobin 28.3 pg (28.0-34.0); Mean Corpuscular Volume 91.6 fL (81-99); Mean Platelet Volume 11.1 fL (7.4-10.4); Monocytes # 0.8 10^3/uL (0.2-0.9); Monocytes % 6.6 %; Neutrophils # 10.39 10^3/uL (1.8-7.7); Neutrophils % 85.9 %; Nucleated Red Blood Cells % 0 %; Platelet Count 255 10^3/cmm (130-400); Red Blood Count 4.88 10^6/uL (4.1-5.3); Red Cell Distribution Width 14.5 % (12.1-15.1); White Blood Count 12.1 10^3/uL (4.0-10.0)
[2020-05-29 05:35] LABS: Anion Gap 10.9 (5-19); Blood Urea Nitrogen 22 mg/dL (8-23); Carbon Dioxide 29 mmol/L (22-29); Chloride 121 mmol/L (98-107); Glucose 194 mg/dL (65-115); Magnesium 1.9 mg/dL (1.7-2.3); Phosphorus 1.9 mg/dL (2.5-4.5); Potassium 3.9 mmol/L (3.5-5.1); Sodium 157 mmol/L (136-145)
[2020-05-29 07:33] VITALS: BP 126/79; PULSE 74; RESP 18; TEMP 37.1; O2SAT 92
[2020-05-29] MEDS: aspirin 81 mg EC Tablet PO (08:36)
[2020-05-29] MEDS: sennosides-docusate Tablet 1 TAB PO (08:36)
[2020-05-29] MEDS: duloxetine 20 mg Capsule PO (08:36)
[2020-05-29] MEDS: dextrose 5%-ns 0.45% + KCl 40 1,000 ML 50 MEQ IV (11:13)
[2020-05-29 11:29] VITALS: BP 135/88; PULSE 77; RESP 18; TEMP 36.7; O2SAT 95
[2020-05-29 13:34] VITALS: BP 144/75; PULSE 109; RESP 17; TEMP 36.7; O2SAT 90
[2020-05-29 15:13] VITALS: BP 145/91; PULSE 69; RESP 18; TEMP 36.6; O2SAT 96
--- NOTE | 2020-05-29 17:53 | PM.PN ---
Subjective Subjective: Interval history: No significant changes or events. The patient refuses food and liquids. No pain. No chest pain or shortness of breath. No cough. No nausea or vomiting. Medications: Reviewed: Yes Vitals/I&O/Wt Last Vital Signs Temp 97.9 F 05/29/20 15:13 Pulse 69 05/29/20 15:13 Resp 18 05/29/20 15:13 BP 145/91 05/29/20 15:13 Pulse Ox 96 05/29/20 15:13 05/29/20 05/29/20 05/29/20 06:59 14:59 22:59 Intake Total 100 / 1150 110 / 110 Output Total 900 / 2200 400 / 400 Balance -800 / -1050 -290 / -290 Physical Exam Narrative: EXAM NARRATIVE: Awake and alert. Flat affect is present. Does not talk. No acute distress Skin is warm and dry MMM Neck supple no JVD Lungs clear. No respiratory distress Heart S1, S2, regular Abdomen is soft, nontender, bowel sounds are present Extremities trace pedal edema. No cyanosis or calf tenderness bilaterally. Neurologic exam is nonfocal Data : 05/29/20 04:44 05/29/20 04:44 A&P Assessment and plan (1) Pancreatitis: Status: Acute (2) Sepsis: Status: Acute (3) UTI (urinary tract infection): Status: Acute (4) Fall: Status: Acute Qualifiers: Encounter type: initial encounter Qualified Code(s): W19.XXXA - Unspecified fall, initial encounter Additional A&P Information Acute delirium due to secondary to UTI Previously was diagnosed with Enterococcus faecalis, continue with vancomycin because I do not have any sensitivity report to see if this was VRE or not Severe leukocytosis however no tachycardia lactic acid 2, no tachypnea patient is afebrile Awaiting urine culture 10 mm kidney stone without hydronephrosis Delirium due to UTI with underlying dementia Acute pancreatitis Cause unknown, most likely it is medication induced She has recently finished Decadron and remdesivir regimen for COVID-19, she was diagnosed on 05/17 Lipase 400, n.p.o., D5 LR regimen Dilaudid and Zofran added Right hip pain after a fall No acute fracture identified on CT pelvis or hip x-ray Check B12, TSH Hypokalemia secondary to poor p.o. intake Potassium will be added to her maintenance fluid regimen Check magnesium level BNP 3000 without active signs of fluid overload, no previous diagnosis of congestive heart failure Would not use Lasix as patient looks dehydrated She is not hypoxic or tachycardic will check D-dimer to rule out PE Troponin negative delta troponin EKG showing sinus rhythm with PVCs CODE STATUS discussed with the long-term they do not have any official documentation for her goals of care, I will treat her as full code for now kindly readdress in the morning N.p.o. DVT prophylaxis Lovenox [place] Acute metabolic encephalopathy/acute delirium secondary to problems listed below, probably on top of chronic dementia. Resolving Sepsis probably secondary to UTI or SIRS secondary to pancreatitis. Abdominal imaging did reveal gallbladder disease or biliary problems. White blood cell count is improving. Probably will switch from Zosyn to Augmentin soon. Acute pancreatitis. Resolving. The diet is liberalized. However the patient does not eat. Hypercalcemia. I suspect this is due to dehydration and prolonged immobilization, not moving. We will continue hydration and monitoring. Hypokalemia. Will replace and monitor. Hypotension probably secondary to above. Currently resolved. Continue IV fluids. A. fib. Currently converted back to sinus. We will monitor her on telemetry. Non-ST elevation ischemic changes on EKG mostly diffuse consistent with subendocardial injury, abnormal troponin, probably secondary to hypotension, demand ischemia. Currently no chest pain. However we will continue aspirin and Lovenox. Considering her sepsis and Covid status she is not a candidate for cardiac catheterization. We will continue conservative management. We will consult cardiology if she develops chest pain. ?Anemia. Probably was a lab error. Currently her hemoglobin has normalized. DVT prophylaxis and recent Covid. No acute respiratory failure. However D-dimer is elevated. Lovenox. Constipation. Continue bowel regimen. Advance care planning. Had discussions with the daughter and the yesterday and the day before yesterday. They are currently having discussions within the family. They are considering DNR and hospice. However there are no final decisions yet. Case management is in touch with them. Discussed with the case management. CODE STATUS. Remains in full code for now Attestations Medical Necessity Statement*: The patient still requires inpatient hospitalization for IV fluids and antibiotics. 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
[2020-05-29 19:50] VITALS: BP 141/93; PULSE 84; RESP 18; TEMP 36.6; O2SAT 91
[2020-05-30] VITALS (37 sets, daily range): BP systolic 111–141; BP diastolic 79–99; PULSE 63–113; RESP 12–30; TEMP 36.5–36.9; O2SAT 91–96
[2020-05-30] MEDS: haloperidol inj 5 mg/mL INJ 1 mL 1 MG IVP (01:42)
[2020-05-30] MEDS: enoxaparin 60 mg/0.6 mL Syringe 50 MG SUBCUT (02:21)
--- NOTE | 2020-05-30 02:49 | PC.NURSE ---
Patient brought to VICU 7 via wheelchair from [facility]. Patient transferred to bed with assist x 2 and placed on geospatial developer, oxygen sat monitor and BP cuff. Patient stated she was cold and warm blanket applied for comfort. Assessment done at this time.
[2020-05-30] MEDS: piperacillin-tazobactam 3.375 GM in sodium chloride 0.9% (plus) 50 ML IV ×2 (10:02)
[2020-05-30 11:38] LABS: Basophils # 0.1 10^3/uL (0.0-0.1); Basophils % 0.5 %; Hematocrit 52.3 % (37.0-47.0); Hemoglobin 15.9 g/dL (11.5-15.3); Lymphocytes # 0.9 10^3/uL (0.8-4.8); Lymphocytes % 6.5 %; Mean Corpuscular HGB Conc 30.4 g/dL (30.0-36.0); Mean Corpuscular Hemoglobin 28.8 pg (28.0-34.0); Mean Corpuscular Volume 94.7 fL (81-99); Monocytes % 6.8 %; Neutrophils # 11.76 10^3/uL (1.8-7.7); Neutrophils % 84.3 %; Nucleated Red Blood Cells % 0 %; Platelet Count 198 10^3/cmm (130-400); Red Blood Count 5.52 10^6/uL (4.1-5.3); Red Cell Distribution Width 14.5 % (12.1-15.1)
--- NOTE | 2020-05-30 12:11 | PM.DCS ---
Discharge Providers Date of Admission: 05/25/20 22:09 Date of Discharge: May 30, 2020 Attending Provider at Admission: Socorro Bo MD Attending Provider at Discharge: Usman Rdz Primary Care Provider: Elmer Segovia DO Diagnoses at Discharge Discharge Diagnosis (1) Pancreatitis: Status: Acute (2) Sepsis: Status: Acute (3) UTI (urinary tract infection): Status: Acute (4) Fall: Status: Acute Qualifiers: Encounter type: initial encounter Qualified Code(s): W19.XXXA - Unspecified fall, initial encounter Reason for Visit Reason for Visit: R HIP PAIN Hospital Course Hospital Course 84 year old female who came from [facility] has baseline dementia was recently discharged from [facility] for investigation of right hip pain, she was brought to our hospital because of electrolyte abnormality. Patient is not able to give me any details, she has baseline dementia she is only oriented to herself. Discharge diagnoses and problem list Acute metabolic encephalopathy/acute delirium secondary to problems listed below, probably on top of chronic advanced dementia. Currently she is back to her baseline mental state. Sepsis probably secondary to UTI and SIRS secondary to pancreatitis. Abdominal imaging did reveal gallbladder disease or biliary problems. White blood cell count is improving. Stopping antibiotics at discharge. Acute pancreatitis. Resolved. The diet is liberalized. However the patient does not eat due to dementia. Hypercalcemia. I suspect this is due to dehydration and prolonged immobilization, not moving. Hypokalemia. Hypotension probably secondary to above. Currently resolved. A. fib. Currently converted back to sinus. Non-ST elevation ischemic changes on EKG mostly diffuse consistent with subendocardial injury, abnormal troponin, probably secondary to hypotension, demand ischemia. Currently no chest pain. However we will continue aspirin and Lovenox. Not a candidate for cardiac catheterization. ?Anemia. Probably was a lab error. Currently her hemoglobin has normalized. Due to advanced dementia and limited functional status and advanced age after long discussions and deliberations the family decided to pursue comfort care and requested hospice evaluation and placement. This arrangements were completed by the case management. The family confirmed their decision. Today she is being discharged home with hospice. On my evaluation her overall condition has not changed. No significant overnight events. Still refuses medications and food. No acute distress. No signs of pain. Physical Exam Narrative: EXAM NARRATIVE: Awake and alert. Verbal. No acute distress. No signs of pain. Dry mucous membranes. No JVD No respiratory distress Skin is warm and dry. No peripheral cyanosis. Discharge Data Data Completed and Pending: Completed Studies During Hospitalization Category Date Time Status CT abdomen pelvis w con* [id number] Urge nt Cat Scan 05/25/20 17:[address] head wo con* 7 [id number] Urgent Cat Scan 05/25/20 11:44 Completed XR chest 1V harpreet ble [id number] Stat Exams 05/25/20 16:26 Completed XR hip BI 3-4V wo /w pel [id number] Stat Exams 05/25/20 11:44 Completed US abdomen limite d [id number] Stat Ultrasound 05/26/20 15:58 Completed Pending at discharge Category Date Time Status Blood Culture Sta t Lab 05/26/20 02:04 Results Immunochemical Fe nahid OCB Routine Lab 05/27/20 10:10 Uncollected Magnesium Routine Lab 05/30/20 10:43 Received PTH Related Pepti de (Protein) Routi ne Lab 05/28/20 06:17 Received Renal Function Pa radha AM LABS Lab 05/30/20 10:43 Received Labs from last 24 hours 05/30/20 05/30/20 05/30/20 10:43 10:43 10:43 WBC 14.0 H RBC 5.52 H Hgb 15.9 H Hct 52.3 H MCV 94.7 MCH 28.8 MCHC 30.4 RDW 14.5 Plt Count 198 MPV 12.0 H Neut % (Auto) 84.3 Lymph % (Auto) 6.5 [place] % (Auto) 6.8 Eos % (Auto) 0.0 Baso % (Auto) 0.5 Neut # (Auto) 11.76 H Lymph # (Auto) 0.9 [place] # (Auto) 1.0 H Eos # (Auto) 0.0 Baso # (Auto) 0.1 Nucleated RBC % (a uto) 0 Nucleated RBCs # 0.0 Sodium Pending Potassium Pending Chloride Pending Carbon Dioxide Pending Anion Gap Pending BUN Pending Creatinine Pending GFR Calculation Pending Glucose Pending Calcium Pending Phosphorus Pending Magnesium Pending Cancelled Albumin Pending Vitals: Last Vital Signs Temp 98.2 F 05/30/20 10:00 Pulse 73 05/30/20 10:00 Resp 15 05/30/20 10:00 BP 137/98 05/30/20 10:00 Pulse Ox 94 05/30/20 08:00 Discharge Plan Discharge Patient Disposition: Home Condition: Stable Prescriptions: Discontinued dexamethasone 6 mg Tablet 6 mg PO DAILY@08 RF: 0 sennosides-docusate sodium [Senna-S] 8.6-50 mg Tablet 1 tab-cap PO DAILY PRN (Reason: Constipation) RF: 0 lorazepam 0.5 mg Tablet 0.5 mg PO Q4H PRN (Reason: Anxiety) RF: 0 magnesium hydroxide [Milk of Magnesia] 400 mg/5 mL Suspension 30 ml PO DAILY PRN (Reason: Constipation) RF: 0 polyethylene glycol 3350 [Miralax] 17 gram/dose Powder 17 g PO DAILY PRN (Reason: Constipation) RF: 0 Discharge Orders: Discharge Order (Routine); Ordered 05/30/20 Ordered By: Usman Rdz Referrals: Elmer Segovia DO [Primary Care Provider] - Discharge Diet: Advance as tolerated and Regular Discharge Activity: Increase activity as tolerated Patient Instructions: Fall Prevention for Older Adults (ED) Activity Restrictions/Additional Instructions: Follow-up with medical provider as directed in 7-10 days for reevaluation. Continue taking all home medications as prescribed. Return to the ER or your medical provider if condition worsens. Please read and understand discharge instructions. If any questions, please ask. 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
[2020-05-30 12:12] LABS: Albumin Level 2.8 g/dL (3.5-5.2); Anion Gap 14.6 (5-19); Blood Urea Nitrogen 36 mg/dL (8-23); Carbon Dioxide 30 mmol/L (22-29); Chloride 114 mmol/L (98-107); Glucose 161 mg/dL (65-115); Magnesium 2.2 mg/dL (1.7-2.3); Phosphorus 3.6 mg/dL (2.5-4.5); Potassium 3.6 mmol/L (3.5-5.1); Sodium 155 mmol/L (136-145)
[2020-05-30 12:31] LABS: Calcium 13.7 mg/dL (8.5-10.5)
--- NOTE | 2020-05-30 14:44 | PC.NURSE ---
DISCHARGE TO [facility] ON HOSPICE. REPORT CALLED TO SIRENA ESTRADA. TOÑO LEFT IN PLACE.
[2020-06-03 14:13] LABS: PTH Related Peptide (Protein) 10 pg/mL (14-27)
== END 2020-05-30 15:00 | disposition hospice, home (50) | DRG 871 ==
LOC: ER 17:07 → MEDSURG 22:50 → ICU 05-30 02:58
PROVIDERS: Physician Assistant; Admitting Provider Internal Medicine; Emergency Provider Nurse Practitioner Family; Visit Provider Internal Medicine
DX: A41.9 Sepsis, unspecified organism (principal); U07.1 COVID-19; K85.90 Acute pancreatitis without necrosis or infection, unspecified; G93.41 Metabolic encephalopathy; I21.A1 Myocardial infarction type 2; N39.0 Urinary tract infection, site not specified; E46 Unspecified protein-calorie malnutrition; Z68.1 Body mass index [BMI] 19.9 or less, adult; F05 Delirium due to known physiological condition; B95.2 Enterococcus as the cause of diseases classified elsewhere; K59.00 Constipation, unspecified; F03.90 Unspecified dementia, unspecified severity, without behavioral disturbance, psychotic disturbance, mood disturbance, and anxiety; I95.9 Hypotension, unspecified; N20.0 Calculus of kidney; E87.6 Hypokalemia; M25.551 Pain in right hip; E86.0 Dehydration; L89.151 Pressure ulcer of sacral region, stage 1; I48.91 Unspecified atrial fibrillation
CPT/HCPCS: 12345; 36415; 70450; 71045; 73521; 73522; 74177; 76705; 80048; 80053; 80061; 80069; 81001; 82542; 82550; 82607; 83605; 83690; 83735; 83880; 84443; 84484; 85025; 85378; 87040; 87086; 87426; 93005; 96372; 96375; 99283; J0290; J0696; J1630; J1650; J2543; J3475; J3480; J3490; Q9967